=== PATIENT | male | born 1945 | race Caucasian/White ===

== ENCOUNTER → 2017-08-13 15:00 | Outpatient (CLI) | payer MEDICARE, SELFPAY ==
[2017-08-13 16:17] LABS: PSA,Total - Annual Screen 3.61 ng/mL (0.00-4.00)
== END ==
PROVIDERS: Family Provider Family Medicine; PCP Family Medicine; Visit Provider Urology
DX: Z12.5 Encounter for screening for malignant neoplasm of prostate (principal)
CPT/HCPCS: 36415; 84153; G0103

== ENCOUNTER → 2018-10-28 | Outpatient (CLI) | payer MEDICARE, SELFPAY ==
[2018-04-25 10:57] VITALS: BMI 28.7
[2018-10-28 10:15] LABS: Hematocrit 41.1 % (40-54); Hemoglobin 13.3 g/dl (13.0-16.5); Mean Corp Hgb Conc 32.4 g/gl (32-36); Mean Corpuscular Hgb 27.3 pg (27.0-32.0); Mean Corpuscular Volume 84.4 fL (80-94); Mean Platelet Vol. 9.2 fl (6.2-12.0); Platelet Count 240 K/mm3 (150-450); RBC Distribution Width SD 46.6 fl (35.1-43.9); Red Blood Count 4.87 M/mm3 (4.6-6.2); White Blood Count 8.5 K/mm3 (4.4-11.0)
[2018-10-28 10:16] LABS: Scan Indicated on CBC? Y/N NO
[2018-10-28 10:43] LABS: ALB/GLOB Ratio 0.8 RATIO (0.9-2.4); AST(SGOT) 15 U/L (15-37); Alanine Aminotransfer ALT/SGPT 21 U/L (16-61); Albumin, Serum 3.3 g/dL (3.2-5.0); Alkaline Phosphatase 93 U/L (45-117); Anion Gap 10 (5-15); BUN 18 mg/dL (7-18); BUN/Creat Ratio 12.9 RATIO (10-20); Calcium,Total 8.5 mg/dL (8.5-10.1); Chloride 109 mmol/L (98-107); Cholesterol 169 mg/dL (200); Creatinine, Serum 1.39 mg/dL (0.70-1.30); EST Glomerular Filtration Rate 53 mL/min (>60); Est Glom Filt Rate - Afr Amer 64 mL/min (>60); Globulin 3.9 g/dL (2.2-4.2); Glucose 108 mg/dL (74-106); High Density Lipoprotein 48 mg/dL; PSA,Total - Annual Screen 3.51 ng/mL (0.00-4.00); Potassium 4.2 mmol/L (3.5-5.1); Protein, Total 7.2 g/dL (6.4-8.2); Sodium Level 142 mmol/L (136-145); Triglycerides 162 mg/dL; Very Low Density Lipoprotein 32 mg/dL (5-40)
== END | disposition home or self-care (01) ==
PROVIDERS: Family Provider Family Medicine; PCP Family Medicine; Referring Provider Family Medicine; Visit Provider Family Medicine
DX: I48.91 Unspecified atrial fibrillation (principal); M13.0 Polyarthritis, unspecified; Z12.5 Encounter for screening for malignant neoplasm of prostate
CPT/HCPCS: 80053; 80061; 84153; 85027; G0103

== ENCOUNTER → 2020-04-20 09:42 | Outpatient (CLI) | payer MEDICARE, SELFPAY ==
[2020-01-20 15:38] VITALS: BMI 28.0
== END ==
PROVIDERS: PCP Family Medicine; Referring Provider Internal Medicine Gastroenterology; Visit Provider Internal Medicine Gastroenterology
DX: Z20.828 Contact with and (suspected) exposure to other viral communicable diseases (principal)
CPT/HCPCS: 87635; C9803; U0003

== ENCOUNTER → 2020-11-02 07:37 | Outpatient (CLI) | payer MEDICARE, SELFPAY ==
[2020-09-09 11:25] VITALS: BMI 28.3
[2020-11-02 09:54] LABS: Absolute Lymphocyte Count 1.98 X10^3/uL (0.83-4.51); Absolute Neutrophil Count 3.7 X10^3/uL (2.0-7.7); Basophil# 0.07 X10^3/uL; Eosinophil# 0.26 X10^3/uL; Eosinophils% 3.7 % (0-5); Hematocrit 46.2 % (40-54); Lymphocyte # 1.98 X10^3/ul (0.83-4.51); Lymphocyte % 28.1 % (19-41); Mean Corp Hgb Conc 32.5 g/dL (32-36); Mean Corpuscular Hgb 30.1 pg (27.0-32.0); Mean Corpuscular Volume 92.8 fL (80-94); Mean Platelet Vol. 9.5 fl (6.2-12.0); Monocyte# 0.98 X10^3/uL; Monocyte% 13.9 % (0-10); NRBC Flagged by Analyzer 0 % (0-5); Neutrophil # 3.72 X10^3/uL (2.7-7.7); Neutrophil % 52.7 % (47-70); Platelet Count 238 K/mm3 (150-450); RBC Distribution Width CV 13.2 % (11.6-14.6); RBC Distribution Width SD 44.9 fl (35.1-43.9); Red Blood Count 4.98 M/mm3 (4.6-6.2); White Blood Count 7.1 K/mm3 (4.4-11.0)
[2020-11-02 10:16] LABS: ALB/GLOB Ratio 0.9 RATIO (0.9-2.4); AST(SGOT) 22 U/L (15-37); Alanine Aminotransfer ALT/SGPT 31 U/L (16-61); Albumin, Serum 3.3 g/dL (3.2-5.0); Alkaline Phosphatase 96 U/L (45-117); Anion Gap 4 (5-15); BUN 19 mg/dL (7-18); BUN/Creat Ratio 15.3 RATIO (10-20); Calcium,Total 8.3 mg/dL (8.5-10.1); Chloride 112 mmol/L (98-107); Cholesterol 165 mg/dL (200); Creatinine, Serum 1.24 mg/dL (0.70-1.30); EST Glomerular Filtration Rate 60 mL/min (>60); Est Glom Filt Rate - Afr Amer 73 mL/min (>60); Globulin 3.5 g/dL (2.2-4.2); Glucose 94 mg/dL (74-106); High Density Lipoprotein 44 mg/dL; PSA,Total - Annual Screen 4.05 ng/mL (0.00-4.00); Potassium 4.1 mmol/L (3.5-5.1); Protein, Total 6.8 g/dL (6.4-8.2); Sodium Level 143 mmol/L (136-145); Triglycerides 192 mg/dL; Very Low Density Lipoprotein 38 mg/dL (5-40)
== END ==
PROVIDERS: PCP Family Medicine; Referring Provider Nurse Practitioner Family; Visit Provider Nurse Practitioner Family
DX: I48.91 Unspecified atrial fibrillation (principal); Z12.5 Encounter for screening for malignant neoplasm of prostate
CPT/HCPCS: 36415; 80053; 80061; 84153; 85025; G0103

== ENCOUNTER → 2022-03-12 | Outpatient (CLI) | payer MEDICARE, SELFPAY ==
[2022-03-12 08:40] LABS: Lyme Ab Screen Interpretation REF LAB
[2022-03-12 11:12] LABS: Hepatitis C Antibody Non-Reactive (Nonreactive); Vitamin B12 425 pg/mL (211-911)
[2022-03-12 11:32] LABS: CRP < 2.90 mg/L (0.0-3.0); Cholesterol 172 mg/dL (200); High Density Lipoprotein 50 mg/dL; PSA,Total- Diagnostic 5.14 ng/mL (0.0-4.0); Thyroid Stim Hormone (TSH) 1.52 uIU/mL (0.358-3.74); Triglycerides 105 mg/dL; Very Low Density Lipoprotein 21 mg/dL (5-40)
[2022-03-22 14:09] LABS: PROEL- A/G Ratio 1.3 (0.7-1.7); PROEL- Albumin 3.5 g/dL (2.9-4.4); PROEL- Alpha-1 Globulin 0.2 g/dL (0.0-0.4); PROEL- Alpha-2 Globulin 0.7 g/dL (0.4-1.0); PROEL- Gamma Globulin 0.8 g/dL (0.4-1.8); PROEL- Globulin, Total 2.7 g/dL (2.2-3.9); PROEL- TOTAL PROTEIN 6.2 g/dL (6.0-8.5); Testosterone, % Free 1.52 % (1.50-4.20); Testosterone, Free 9.68 ng/dL (5.00-21.00)
[2022-03-22 17:31] LABS: Lyme Scn Total Ab w/Rflx Negative (Negative); Testosterone, Total 637 ng/dL (264-916)
== END | disposition home or self-care (01) ==
LOC: MFPLAB 08:38
PROVIDERS: PCP Family Medicine; Visit Provider Family Medicine
DX: R53.83 Other fatigue (principal); R97.20 Elevated prostate specific antigen [PSA]; R79.89 Other specified abnormal findings of blood chemistry
CPT/HCPCS: 80061; 82607; 82746; 84153; 84165; 84402; 84403; 84443; 86140; 86618; 86803

== ENCOUNTER → 2022-03-16 | Outpatient (CLI) | payer MEDICARE, SELFPAY ==
--- NOTE | 2022-03-16 15:31 | CT_ITS ---
STUDY: CT RIGHTLOWER EXTREMITY WITHOUT CONTRAST REASON FOR EXAM: Male, 77 years old. PAIN. DANIELLE PROTOCOL RADIATION DOSAGE (If Supplied By Facility): CTDIvol = ( 22.33 ) mGy, DLP = ( 1657.39 ) mGycm TECHNIQUE: Thin section transaxial imaging of the ankle was obtained, with sagittal and coronal reconstructed images. Individualized dose optimization techniques were used for this CT. COMPARISON: None. Hip findings: Normal femoral head, neck, intertrochanteric region and visualized proximal femur. Normal acetabulum. Normal hip joint. Normal visualized superior and inferior pubic rami and ischial tuberosities. Mild greater trochanteric enthesopathy noted. No visualized fracture or displaced bony fragment. Mild osteoarthritic spurring is present on both sides of the hip joint. Small benign bone island noted in the right femoral neck. Normal visualized iliac wing, sacroiliac joint, and sacral ala. Diffuse rectosigmoid diverticulosis is present. The remaining visualized intrapelvic structures are unremarkable. Small fat-containing bilateral internal hernias are also present. Knee findings: There is severe narrowing at the periphery of the medial compartment with revx-wr-[id number] contact and mild reactive sclerosis. The lateral compartment spaces is preserved. The patellofemoral compartment is mildly narrowed. A small joint effusion is also present. No fracture or displaced fragment is seen. Normal proximal tibiofibular articulation. The quadriceps tendon is grossly normal. The patellar tendon is grossly normal. Normal Hoffa''s fat pad. The soft tissues are unremarkable. Ankle findings: Normal visualized distal tibia and fibula. Tiny unfused ossicle at the posterior aspect of the distal tibial plafond/posterior tibial malleolus is either related to old trauma or developmental defect with incomplete fusion. Normal tibiotalar articulation and talar dome. Normal talus, calcaneus, navicular and cuboid tarsal bones. Normal subtalar, talonavicular and calcaneocuboid articulations. Normal navicular-cuneiform, cuneiform tarsal bones and intercuneiform articulations. Normal tarsometatarsal articulations and visualized metatarsi. The soft tissue structures are grossly normal. CT/Extremity Lower without Contra IMPRESSION: 1. Severe narrowing with [id number]-iy-[id number] contact at the periphery of the medial compartment of the knee Electronically Signed: Rafael Naylor MD at 14:26 EDT ,
== END | disposition home or self-care (01) ==
PROVIDERS: PCP Family Medicine; Visit Provider Orthopaedic Surgery
DX: M17.11 Unilateral primary osteoarthritis, right knee (principal)
CPT/HCPCS: 73700

== ENCOUNTER 2022-04-02 05:23 | Day surgery (SDC) | payer MEDICARE, SELFPAY ==
[2022-03-28 07:44] LABS: Absolute Neutrophil Count 3.2 X10^3/uL (2.0-7.7); Basophil# 0.07 X10^3/uL; Eosinophil# 0.22 X10^3/uL; Eosinophils% 3.2 % (0-5); Hematocrit 44.9 % (40-54); Hemoglobin 15.1 g/dL (13.0-16.5); Mean Corp Hgb Conc 33.6 g/dL (32-36); Mean Corpuscular Hgb 31.9 pg (27.0-32.0); Mean Corpuscular Volume 94.9 fL (80-94); Mean Platelet Vol. 8.8 fl (6.2-12.0); Monocyte# 0.95 X10^3/uL; Monocyte% 13.7 % (0-10); NRBC Flagged by Analyzer 0 % (0-5); Neutrophil # 3.18 X10^3/uL (2.7-7.7); Neutrophil % 45.7 % (47-70); Platelet Count 214 K/mm3 (150-450); RBC Distribution Width CV 12.4 % (11.6-14.6); RBC Distribution Width SD 43.3 fl (35.1-43.9); Red Blood Count 4.73 M/mm3 (4.6-6.2)
[2022-03-28 08:00] LABS: Albumin, Serum 3.3 g/dL (3.2-5.0); Anion Gap 5 (5-15); BUN 22 mg/dL (7-18); Calcium,Total 8.9 mg/dL (8.5-10.1); Chloride 111 mmol/L (98-107); Creatinine, Serum 1.47 mg/dL (0.70-1.30); EST Glomerular Filtration Rate 49 mL/min (>60); Est Glom Filt Rate - Afr Amer 60 mL/min (>60); Glucose 98 mg/dL (74-106); Potassium 4.2 mmol/L (3.5-5.1); Sodium Level 143 mmol/L (136-145)
[2022-03-28 08:14] LABS: Magnesium 2.4 mg/dL (1.6-2.6)
[2022-03-28 08:54] LABS: Hemoglobin A1c 5.9 % (3.8-5.6)
[2022-04-02] VITALS (15 sets, daily range): BP systolic 104–148; BP diastolic 20–74; PULSE 51–63; RESP 16–18; TEMP 36–36.3; O2SAT 94–100; BMI 27.1
[2022-04-02] MEDS: Lactated Ringers 1,000 ML 15 ML IV ×2 (06:28→08:31)
[2022-04-02] MEDS: Magnesium 1 GM over 15 mins IV (06:28)
[2022-04-02] MEDS: Gabapentin 600 MG Tablet PO (06:28)
[2022-04-02] MEDS: Acetaminophen 500 MG Tablet 1000 MG PO ×2 (06:28→14:08)
[2022-04-02 07:25] LABS: Bedside Glucose 91 mg/dL (74-106)
--- NOTE | 2022-04-02 07:30 | KNEE_PTH ---
PATIENT: JARRED WHITT LOC: [facility] [place] U#:[id number] AGE/SX: 77/M ROOM: RE04/02/[address]: Dr. Handy Cerna DO : 1945 BED: DIS: 04/02/2022 SPEC #: [id number] RECD: 04/02/22 12:29 STATUS: AYANNA REQ #: [id number] TIKA: 04/02/22 07:[address]: Handy Cerna DEPT: SURGICAL PATHOLOGY RECD BY: Mary Ann Panchal ENTERED: 04/02/22 12:44 SP TYPE: TOTAL KNEE OTHR DR: Dr. Marquise Whitt MD Tissues: Knee, NOS Procedures: Decalcification bone/plaque Surgery Specimen Level IV HEADER OPERATION: ERAS, total knee replacement robotic arm assist PRE-OP DIAGNOSIS: Unilateral primary osteoarthritis right knee TISSUE SUBMITTED: Bone and tissue right knee MICROSCOPIC DIAGNOSIS Bone and tissue of right knee, total knee resection: Severe degenerative joint disease. AM:ida 04/05/2022 MICROSCOPIC DESCRIPTION Slides are reviewed. GROSS DESCRIPTION Received is one container designated bone and soft tissue right knee. The specimen consists of multiple fragments of zaidi-yellow bone measuring in aggregate 17 x 13 x 2 cm. Also in the specimen container are multiple fragments of yellow-white soft tissue measuring in aggregate 10 x 9 x 2.5 cm. A number of bony fragments contain articular surfaces consistent with tibial plateau and femoral condyle and displaying prominent osteophyte formation, eburnation, and bone erosion. Manager Quantitative sections are submitted in two cassettes as follows: 1 - soft tissue, 2 - bone after decalcification. / AM:ida 04/02/2022 TC:5 [facility]: [id number], [id number]
[2022-04-02] MEDS: Cefazolin 2 GM in 0.9% Normal Saline 100 ML IV (07:32)
[2022-04-02] MEDS: TXA 1000mg in NS100 100ml (IVPB at Incision) 660 MG IV (07:45)
[2022-04-02] MEDS: TXA 1000mg in NS100 100ml (IVPB at Closure) 660 MG IV (08:33)
--- NOTE | 2022-04-02 08:49 | OP.PCM_ITS ---
Report of Operation Date of Procedure: 04/02/22 Pre-Operative Diagnosis: OA right knee Post-Operative Diagnosis: same Surgery/Procedure Performed:: Right TKR Description of Surgical Findings:: Report of Operation Date of Procedure: 04/02/2022 Preoperative Diagnosis: [right ] knee primary osteoarthritis Postoperative Diagnosis: [ right ] knee primary osteoarthritis Operation: Robotic Assisted Knee Total Arthroplasty, [right ] knee Surgeon: Dr Handy Cerna DO Windows Systems Engineer: Chidi Lopez PA-C Anesthesia: spinal Anesthesiologist: Umang Siegel M.D. Findings: Stable knee with good patella tracking Specimen(s): Bony cuts Complications: No intraoperative complications Estimated Blood Loss: 20 cc IV Fluids: 1000 cc crystalloid Implants Used: 1. [employer] press-fit CR size 6 femur 2. [place] [employer] size 6 tibia 3. 38 mm patella 4. 9 mm CS polyethylene Brief History Operative Indications: [ (77 y/o male) ] with history of [right] knee osteoarthrosis with radiographic findings with loss of joint space, osteophyte formation and subchondral sclerosis. Failed conservative measures as mentioned in the H&P. Discussion of total knee arthroplasty as well as risk and benefits were d iscussed with the patient including but not limited to blood loss, DVTs, PEs, neurovascular damage, general risk of anesthesia including loss of life, and stiffness or instability were also discussed with the patient. Patient demonstrated understanding and was able to sign informed consent. Procedure: On the date of procedure, patient's [ right ] lower extremity was marked in the preoperative area. The patient was then taken back to the operating room where that patient was placed on the table in the supine position. All bony prominences were identified and well-padded. Anesthesia assumed control of the C-spine and airway throughout the remainder of the procedure. A tourniquet was placed on the [ right ] upper thigh and the leg was prepped in a sterile fashion. The surgeon then scrubbed at this time. Upon reentering the room, the [right] lower extremity was draped in a standard orthopedic fashion. A timeout was then called and everyone agreed upon the side, the site, the procedure to be performed, patient's identity and antibiotics given. Esmarch bandage was used to exsanguinate the extremity and the tourniquet was placed up to 250 mmHg with the knee in flexion. A midline skin incision was made and a sharp dissection was taken down through skin, subcutaneous tissue and fat. The standard medial parapatellar incision was made and the patella was subluxed laterally. An appropriate deep MCL release was done and the fat pad was resected. Our attention was then directed to the patella. The patella was everted and a flat resection was made. The knee was then flexed up and 2 femoral pins were placed inside the incision and 2 tibial pins were placed outside the incision in the medial tibia bicortically. Once this was completed, the 2 checkpoints in the femur and tibia were placed. Knee was then flexed up and the bony landmarks were registered. Once the was completed, the knee taken through range of motion and manually stressed allowing us to plan for an appropriate tibial cut. The robotic arm was brought into the field sterilely and checkpoint and saw were registered. Based on the patient's deformity, the tibial cut was made in [1 degree varus ]. At this time, the tensioner was then placed in the joint and ligament tension was checked at 90 degrees and full extension. Based on the patient's ligamentous tension, appropriate adjustments were made to the operative plan and ligament releases were done. Once we were happy with our operative plan with balanced flexion and extension gaps, our attention was directed to the femur. The robot was brought into the field sterilely and registered. Posterior condylar cuts, anterior chamfer cuts and anterior cuts were appropriately made for a [size 6 ] femur. When these were completed, the saws were switched out in the distal femoral and posterior chamfer cuts were made. Protecting the soft tissue throughout this time. A [size 6] base plate was selected. The knee was flexed to 90 degrees and soft tissues and posterior osteophytes were removed from the joint. 40 cc of the periarticular injection was injected into the posterior medial corner of the joint. The appropriate trials were then placed on the femur and tibia. A trial polyethylene was trialed to ensure proper balancing and stability of the knee. The appropriate tibial internal rotation was then marked with a bovie. Our attention was then directed to the patella. The lug holes were drilled and the patella trial was placed. Patellar tracking was checked and deemed appropriate. Once we were happy, lug holes were drilled for the femur and trial components were removed. The tibia was subluxed and pinned into place and the keel was punched and drilled appropriately. Final components were verified and opened. The wound was copiously irrigated with normal saline. The components were impacted into place with the tibia, femur and finally the patella. The trial poly component was placed and the knee was placed in full extension. The tracking, alignment and balance were verified and a [ 9 mm CS ] polyethylene component was placed. Once the final components were placed an Irrisept lavage was performed and the wound was copiously irrigated with normal saline solution and the periarticular injection was given. the wound was closed in a layer-gay fashion using #1 vicryl interrupted sutures for the arthrotomy, 2-0 interrupted vicryl suture for the subcuticular layer and destinee for final skin closure. A sterile compressive dressing was then placed. The patient was then awakened from anesthesia, transferred to the [facility] and transferred to the PACU for recovery. My physician preschool teacher assistant was a vital part of this case. He was important in appropriate retraction during the case, and protection of soft tissues during bony cuts. His intimate knowledge of the case and my steps aided in safe and expedient completion of the procedure as well as appropriate position of the leg during the case. He was also vital in assisting with closure under my direct supervision. Due to the complexity of this case, robotic arm was used to assist in the surgery to improve accuracy and clinical outcomes. Post-op Plan: DVT ppx; ASA 81 mg BID, thigh high compression stockings Follow up: in office in 2 weeks for wound check PT: to start POD #0 at hospital, outpatient PT should be arranged. Preoperative antibiotic: Ancef 2 grams IV Handy Cerna DO Surgeon: Handy Cerna television director: Chidi Lopez Type of Anesthesia: Spinal Anesthesiologist: Umang Siegel Specimen's removed: bone Estimated Blood Loss (mL): 20 cc Fluids Replaced: 1000 cc crystalloid Admit VTE Documentation VTE Present on Admission: No VTE Mechan Device Prophylaxis: SCD's and Knee High ANGIE Hose VTE Pharm Prophylaxis ordered?: Yes
--- NOTE | 2022-04-02 10:05 | RAD_ITS ---
STUDY: X-RAY - RIGHT KNEE REASON FOR EXAM: Male, 77 years old. Post op TKR -- in PACU TECHNIQUE: 2 view(s) of the knee. COMPARISON: None. FINDINGS: Normal visualized distal femur. Normal visualized proximal tibia and fibula. Normal proximal tibiofibular articulation. The patient is status post total knee replacement. There is good alignment. Postoperative soft tissue changes. RAD/Knee 1 or 2 Views IMPRESSION: Status post right total knee replacement. There is good alignment. Postoperative soft tissue changes. Electronically Signed: Helio Joshi MD at 12:30 EDT ,
[2022-04-02] MEDS: Lactated Ringers 1,000 ML 125 ML IV (10:20)
[2022-04-02] MEDS: oxyCODONE 5 MG Tablet PO ×2 (12:09→14:08)
== END 2022-04-02 16:40 | disposition home or self-care (01) ==
LOC: SDC 05:24 → AC 05:24
PROVIDERS: Anesthesiology; PCP Family Medicine; Referring Provider Orthopaedic Surgery; Visit Provider Orthopaedic Surgery
PROC: 0SRC0JZ Replacement of Right Knee Joint with Synthetic Substitute, Open Approach (ICD-10-PCS; CPT 27447; principal; 2022-04-02 07:00)
DX: M17.11 Unilateral primary osteoarthritis, right knee (principal); I48.0 Paroxysmal atrial fibrillation; K21.9 Gastro-esophageal reflux disease without esophagitis; G47.30 Sleep apnea, unspecified; Z79.01 Long term (current) use of anticoagulants; Z79.899 Other long term (current) drug therapy; Z96.612 Presence of left artificial shoulder joint
CPT/HCPCS: 27447; 64447; 01402; 36415; 73560; 80048; 82040; 82962; 83036; 83735; 85025; 87081; 88305; 88311; 97162; C1776; J7120; J3475

== ENCOUNTER → 2023-03-12 | Outpatient (CLI) | payer MEDICARE, SELFPAY ==
[2023-03-12 10:08] LABS: Absolute Lymphocyte Count 1.69 X10^3/uL (0.83-4.51); Basophil# 0.07 X10^3/uL; Basophil% 1.2 % (0-1); Eosinophil# 0.26 X10^3/uL; Eosinophils% 4.5 % (0-5); Hemoglobin 13.3 g/dL (13.0-16.5); Lymphocyte # 1.69 X10^3/ul (0.83-4.51); Lymphocyte % 29.3 % (19-41); Mean Corp Hgb Conc 31.7 g/dL (32-36); Mean Corpuscular Hgb 28.4 pg (27.0-32.0); Mean Corpuscular Volume 89.7 fL (80-94); Mean Platelet Vol. 9.5 fl (6.2-12.0); Monocyte# 0.75 X10^3/uL; NRBC Flagged by Analyzer 0 % (0-5); Neutrophil # 2.98 X10^3/uL (2.7-7.7); Neutrophil % 51.7 % (47-70); Platelet Count 236 K/mm3 (150-450); RBC Distribution Width CV 15.7 % (11.6-14.6); RBC Distribution Width SD 51.8 fl (35.1-43.9); Red Blood Count 4.68 M/mm3 (4.6-6.2); White Blood Count 5.8 K/mm3 (4.4-11.0)
[2023-03-12 10:46] LABS: ALB/GLOB Ratio 0.8 RATIO (0.9-2.4); AST(SGOT) 17 U/L (15-37); Alanine Aminotransfer ALT/SGPT 24 U/L (16-61); Albumin, Serum 3.2 g/dL (3.2-5.0); Alkaline Phosphatase 100 U/L (45-117); Anion Gap 4 (5-15); BUN 16 mg/dL (7-18); BUN/Creat Ratio 11.9 RATIO (10-20); Calcium,Total 8.8 mg/dL (8.5-10.1); Chloride 111 mmol/L (98-107); Cholesterol 165 mg/dL (200); Creatinine, Serum 1.34 mg/dL (0.70-1.30); EST Glomerular Filtration Rate 55 mL/min (>60); Est Glom Filt Rate - Afr Amer 66 mL/min (>60); Globulin 3.8 g/dL (2.2-4.2); Glucose 96 mg/dL (74-106); High Density Lipoprotein 45 mg/dL; PSA,Total- Diagnostic 3.09 ng/mL (0.0-4.0); Potassium 4.4 mmol/L (3.5-5.1); Sodium Level 140 mmol/L (136-145); Triglycerides 160 mg/dL; Very Low Density Lipoprotein 32 mg/dL (5-40)
== END | disposition home or self-care (01) ==
LOC: MFPLAB 08:15
PROVIDERS: PCP Family Medicine; Visit Provider Family Medicine
DX: I48.91 Unspecified atrial fibrillation (principal); R97.20 Elevated prostate specific antigen [PSA]; Z13.6 Encounter for screening for cardiovascular disorders
CPT/HCPCS: 36415; 80053; 80061; 84153; 85025

== ENCOUNTER → 2024-03-13 | Outpatient (CLI) | payer MEDICARE, SELFPAY ==
[2024-03-13 17:50] LABS: Absolute Lymphocyte Count 2.04 X10^3/uL (0.83-4.51); Absolute Neutrophil Count 4.8 X10^3/uL (2.0-7.7); Basophil# 0.05 X10^3/uL; Basophil% 0.6 % (0-1); Eosinophil# 0.12 X10^3/uL; Eosinophils% 1.5 % (0-5); Hematocrit 41.3 % (40-54); Hemoglobin 13.2 g/dL (13.0-16.5); Lymphocyte # 2.04 X10^3/ul (0.83-4.51); Lymphocyte % 25.8 % (19-41); Mean Corpuscular Hgb 28.4 pg (27.0-32.0); Mean Corpuscular Volume 88.8 fL (80-94); Mean Platelet Vol. 9.3 fl (6.2-12.0); Monocyte# 0.93 X10^3/uL; Monocyte% 11.7 % (0-10); NRBC Flagged by Analyzer 0 % (0-5); Neutrophil # 4.75 X10^3/uL (2.7-7.7); Platelet Count 262 K/mm3 (150-450); RBC Distribution Width CV 15.2 % (11.6-14.6); RBC Distribution Width SD 49.4 fl (35.1-43.9); Red Blood Count 4.65 M/mm3 (4.6-6.2); White Blood Count 7.9 K/mm3 (4.4-11.0)
[2024-03-13 18:03] LABS: ALB/GLOB Ratio 0.8 RATIO (0.9-2.4); AST(SGOT) 19 U/L (15-37); Alanine Aminotransfer ALT/SGPT 21 U/L (16-61); Albumin, Serum 3.3 g/dL (3.2-5.0); Alkaline Phosphatase 94 U/L (45-117); Anion Gap 4 (5-15); BUN 19 mg/dL (7-18); BUN/Creat Ratio 12.4 RATIO (10-20); Calcium,Total 9.3 mg/dL (8.5-10.1); Chloride 108 mmol/L (98-107); Creatinine, Serum 1.53 mg/dL (0.70-1.30); EST Glomerular Filtration Rate 47 mL/min (>60); Est Glom Filt Rate - Afr Amer 57 mL/min (>60); Glucose 99 mg/dL (74-106); PSA,Total- Diagnostic 2.89 ng/mL (0.0-4.0); Potassium 4.2 mmol/L (3.5-5.1); Protein, Total 7.3 g/dL (6.4-8.2); Sodium Level 136 mmol/L (136-145)
== END | disposition home or self-care (01) ==
LOC: MTLAB 15:55
PROVIDERS: PCP Family Medicine; Referring Provider Family Medicine; Visit Provider Family Medicine
DX: N18.2 Chronic kidney disease, stage 2 (mild) (principal); R97.20 Elevated prostate specific antigen [PSA]
CPT/HCPCS: 36415; 80053; 84153; 85025

== ENCOUNTER 2025-02-16 10:00 | Outpatient (RCR) | payer MEDICARE, SELFPAY ==
--- NOTE | 2025-01-11 16:01 | HP.PTEVAL_ITS ---
Patient's Visit Information Visit Information Visit Information: JARRED TORRES is a 79 year old M referred to Physical Therapy by ANA Machuca with a diagnosis of CERVICALGIA ,KYPHOSIS ,CERVICAL SPINE. Date of Evaluation: 01/11/25 Physical Therapist: Josiah Hernandez PT, Cert MDT, OCS Visit Plan Frequency: 2x /Week Duration: 4 Weeks Plan: PT INTERVENTIONS CERVICAL ROM ,POSTURAL EX'S , STRENGTHENING ,MANUAL THERAPY ( STM) AND MODALTIES Subjective Subjective: This 79 y/o male presents to physical therapy with cervical pain. Patient has had cervical pain for several months . Patient seen Jonah Chicas recommended PT , Patient had x-rays showed Diffuse facet arthritis. Multilevel anterior osteophyte formation. Relatively preserved disc spaces. No abnormal motion with flexion/extension. Medication methocarbamol 500 mg 3 times a day as needed. Did recommended pain management. Patient wanted to wait on pain management. Location of pain symmetrical cervical to UT. Symptoms described described as pressure and tightness. Aggravating factors standing ,walking ,lifting OH ,rotation. Alleviating factors rest. ,medication; Denies paresthesia/tingling -. Denies SALGADO/nausea/tinnitus .No h/o trauma/injury . No prior treatment. Patient pain affects sleeping. Patient condition affects QOL and function/ADL's. Goals to decrease pain. SOCIAL: VOCATION: retired Pain Bilateral Neck: Pain Intensity (Out of 10): 1 Pain Intensity Range: 1 and 10 Objective Objective: POSTURE: mild forward posture ,thoracic kyphosis ,head forward GAIT: reciprocal pattern slow corinne PALPATION: UT/levator ,paraspinals BUE: WFL CERVICAL ROM: flexion min loss ,lateral flexion mod/severe loss ,rotation mod loss ,extension mod/severe loss with crepitus noted with motion MMT: BUE 4/5 grossly Special Tests C/S Radiculapathy - Left Upper limb tension test: Negative C/S Radiculapathy - Right Upper limb tension test: Negative C/S Radiculapathy - Left Spurlings: Positive C/S Radiculapathy - Right Spurlings: Positive C/S Radiculapathy - Left Cervical distraction: Positive C/S Radiculapathy - Right Cervical distraction: Positive C/S Radiculapathy - Left Relief test: Negative C/S Radiculapathy - Right Relief test: Negative Sharp Colby: Negative Vertebral Artery Test: Negative Alar Ligament Test: Negative Balance/Special Test Scores Oswestry Neck Score: 19 Goals Goal 1:: Patient to be I with HEP for neck Goal Time Frame: 4-6 Weeks Goal 2:: Patient to improve cervical ROM for function of recovery for driving Goal Time Frame: 4-6 Weeks Goal 3:: Patient to demonstrate 50% improvement with less pain and improved function Goal Time Frame: 4-6 Weeks Goal 4:: Patient to improve neck oswestry score by 5 points to improve function and QOL Goal Time Frame: 4-6 Weeks Goal 5:: Patient able to stand and/or walk 40-50% improved for ADLS Goal Time Frame: 4-6 Weeks Rehabilitation Potential Physical Therapy Diagnosis: This patient has cervical pain with DDD with decrease cervical ROM ,decrease posture pain with position/motion testing ,worse with walking/standing thus benefit from skilled PT Rehabilitation Potential: Good Anticipated Interventions Patient/Client Instruction: Educate patient on: Condition and Plan of Care For the Purpose of:: To decrease pain, To increase ROM, To improve muscle performance and motor function, To improve ability to perform ADL's, To increase tolerance to activity/condition/position, To improve performance and independence with ADL's, To improve ability of physical actions for home/community/work/leisure, To improve gait and locomotor functions, To improve health of tissue, To decrease soft tissue restriction, To increase flexibility/ROM and To improve tolerance to ADL's Therapeutic Exercise to Include: Strength training, Postural training, Flexibilty training and Active ROM For the Purpose of:: To decrease pain, To increase ROM, To improve muscle performance and motor function, To improve ability to perform ADL's, To increase tolerance to activity/condition/position, To improve ability of physical actions for home/community/work/leisure, To improve health of tissue, To decrease soft tissue restriction and To increase flexibility/ROM Manual Therapy Techniques to Include: Mobilization and Soft tissue mobilization For the Purpose of:: To decrease pain, To increase ROM, To improve nutrient d elivery to tissue, To increase oxygenation perfusion, To improve health of tissue, To decrease soft tissue restriction and To increase flexibility/ROM TENS: Yes IF ES: Yes Cryotherapy (ice pack, ice massage): Yes Thermo therapy (hot pack): Yes Ultrasound (thermal/non thermal): Yes For the Purpose of:: To decrease pain, To increase ROM, To improve nutrient delivery to tissue, To increase oxygenation perfusion, To improve health of tissue and To decrease soft tissue restriction Text: Thank you for the opportunity to evaluate your patient. For Medicare and Medicare HMO plans, please review the plan of care and approve it. It will need to be FAXED BACK to us at [phone] for Medicare purposes. For Medicare only, by signing this I certify the plan of care. Please let me know if there are questions or concerns regarding this plan of care. Physician Signature: Date:
--- NOTE | 2025-02-16 10:36 | HP.PTDCSUM ---
Discharge Summary D/C summary: It has been my pleasure to treat JARRED TORRES referred by ANA Machuca, with the diagnosis of CERVICALGIA ,KYPHOSIS ,CERVICAL SPINE for a total of 8 visit(s). Discharge Date: 02/16/25 Please see the following information for a summary of their discharge status. Subjective Subjective: Patient making progressing with less pain Lifting OH Turning makes symptoms worse Possible management Pain Bilateral Neck: Pain Intensity (Out of 10): 2 Overall Improvement % Improvement: 60 Objective Objective/Function: POSTURE: mild forward posture ,thoracic kyphosis ,head forward GAIT: reciprocal pattern slow corinne PALPATION: UT/levator ,paraspinals BUE: WFL CERVICAL ROM: flexion min loss ,lateral flexion mod/severe loss ,rotation mod loss ,extension mod/severe loss with crepitus noted with motion MMT: BUE 4/5 grossly Goals Goal 1:: Patient to be I with HEP for neck Goal Progress: Progressing Goal 2:: Patient to improve cervical ROM for function of recovery for driving Goal Progress: Progressing Goal 3:: Patient to demonstrate 50% improvement with less pain and improved function Goal Progress: Goal Met Goal 4:: Patient to improve neck oswestry score by 5 points to improve function and QOL Goal Progress: Progressing Goal 5:: Patient able to stand and/or walk 40-50% improved for ADLS Goal Progress: Progressing Plan Plan: D/C D/C Information Discharge Comments: hep and possible pain management d/c sentence: If there are questions or concerns regarding this patient's physical therapy, please feel free to call me at [phone]. Thank you for the referral of this patient. Sincerely, Josiah Hernandez, PT, Cert MDT, OCS Balance/Gait/Functional tests Balance/Special Test Scores Oswestry Neck Score: 19 Improvement % Improvement: 60
== END 2025-02-16 19:00 | disposition home or self-care (01) ==
LOC: PT 10:00
PROVIDERS: PCP Family Medicine; Referring Provider Student in an Organized Health Care Education/Training Program; Visit Provider Student in an Organized Health Care Education/Training Program
DX: M40.202 Unspecified kyphosis, cervical region (principal); M54.2 Cervicalgia
CPT/HCPCS: 97110; 97140; 97162; 97530

== ENCOUNTER 2025-05-06 15:13 | Emergency (ER) | payer OTHER, SELFPAY ==
[2025-05-06 15:14] VITALS: BP 111/79; PULSE 54; RESP 16; TEMP 36.4; O2SAT 100; BMI 27.7
--- NOTE | 2025-05-06 15:41 | EX.ED.DYSGE1 ---
HPI History of Present Illness Chief Complaint: Bite Informant: patient Narrative Narrative: Patient is a 80-year-old male anticoagulated on Xarelto lives alone and receives frequent tick bites presenting with tick bite with associated rash. Patient's daughter took a tick off of him earlier today. He was noticed to have a relatively large rash around it. He states that areas been itching. I spoke to another family member recommended they come to the emergency room. He states he is otherwise been doing well. Did have a recent bad cold/cough however this has been improving. No recent fevers. No myalgias reported. No chest pain or lightheadedness reported. No other complaints or concerns at this time. No known history of Lyme disease. [facility] Medical History Wears glasses Alcohol use Arthritis DVT (deep venous thrombosis) Migraine headache Gastric reflux Non-smoker CPAP (continuous positive airway pressure) dependence History of pain when walking History of echocardiogram History of stress test Cardiology follow-up encounter History of atrial fibrillation Chest pain Syncope Sleep apnea GERD (gastroesophageal reflux disease) History of DVT of lower extremity Atrial flutter Paroxysmal atrial fibrillation Pulmonary embolism Home Medications ?Medication ?Instructions ?Recorded ?Last Taken ?Type omeprazole 20 mg capsule,delayed 20 mg PO DAILY 03/24/13 03/13/16 05:30 History release magnesium oxide 400 mg (241.3 mg 400 mg PO DAILY 12/21/14 12/21/14 09:00 History magnesium) tablet ascorbic acid (vitamin C) 500 mg 500 mg PO DAILY 07/24/21 Unknown History tablet cholecalciferol (vitamin D3) 25 25 mcg PO DAILY 07/24/21 Unknown History mcg (1,000 unit) tablet zinc gluconate 100 mg tablet 100 mg PO DAILY 07/24/21 Unknown History acetaminophen 500 mg tablet 1,000 mg PO Q8 PRN 01/02/24 Unknown History flecainide 100 mg tablet See Rx Instructions .Route 12/16/24 Unknown Rx .COMPLEX #180 tabs metoprolol tartrate 25 mg tablet See Rx Instructions .Route 12/21/24 Unknown Rx .COMPLEX #90 tabs rivaroxaban 20 mg tablet (Xarelto) 20 mg PO DAILY #90 tabs 12/21/24 Unknown Rx methocarbamol 500 mg tablet 500 mg PO TID PRN pain/spasms #60 01/12/25 Unknown Rx tabs doxycycline hyclate 100 mg capsule 100 mg PO BID #20 caps 05/06/25 Unknown Rx Allergy/AdvReac Type Severity Reaction Status Date / Time No Known Allergies Allergy Verified 05/06/25 15:15 Family History Mother CVA (cerebral vascular accident) Hypertension Father CVA (cerebral vascular accident) Diabetes Surgical History History of esophagogastroduodenoscopy (EGD) Hx of colonoscopy History of colon surgery Hx of inguinal hernia surgery History of arthroplasty of left shoulder History of cholecystectomy Social History Smoking Status: Never smoker alcohol intake: current details: rare substance use type: does not use ROS ROS ED Constitutional Constitutional ED: Denies chills or fever(s) ENT ENT ED: Reports other Details: No mouth sores ; Denies sore throat Cardiovascular Cardiovascular: Denies chest pain Respiratory/Chest Respiratory/Chest: Denies cough Gastrointestinal Gastrointestinal: Denies nausea or vomiting Musculoskeletal Musculoskeletal: Denies arthralgias or myalgias Integumentary Reports rash Neurologic Neurologic: Denies weakness Hematologic/Lymphatic Hematologic/Lymphatic: Reports easy bleeding, easy bruising and other Details: On Xarelto EXAM Physical Exam Const Vital Signs: 05/06/25 15:14 Temperature 97.6 F L Temperature Source Temporal Pulse Rate 54 L Respiratory Rate 16 Blood Pressure 111/79 Blood Pressure Mean 89 Pulse Ox 100 Oxygen Delivery Method Room Air Positive well nourished and well developed General Appearance ED: well developed HEENT Reports moist mucous membranes Neck supple Chest Wall inspection of chest normal and palpation of chest normal Resp normal respiratory effort and clear to auscultation bilaterally Cardio regular rate and regular rhythm GI normal to inspection, nondistended, normoactive bowel sounds and non-tender Extremity normal to inspection General Extremety ED: Negative for edema General Extremity: Negative for edema Neuro oriented x3 Sensorium / Orientation: alert Skin Skin Narrative: On the left flank at approximately the mid axillary line there is a small wound consistent with recent tick bite. Traveling anterior from this is approximately 7 cm x 4 cm avoid welts that is slightly raised and erythematous with central erythema that is less pronounced and not raised. Patient states this area is mildly itchy. No associate lymphangitic streaking. No fluctuance appreciated. No petechia present. No other rash appreciated MDM MDM MDM Narrative Medical decision making narrative: Patient is evaluated for rash associate with tick bite. There does not appear to be any retained of pieces of the tick. Rash is not consistent with cellulitis. Differential includes localized skin reaction/allergic reaction versus erythema multiforme a rash secondary to Lyme disease. Will empirically put on doxycycline as the rash does have central clearing and patient does have frequent tick bites as he lives in the [facility]. Lyme titer sent. Counseled to use topical hydrocortisone cream to help with itching and take Zyrtec in case this is more allergy mediated. Given return precautions. Discharged home in stable condition. Discharge Plan Triage Chief Complaint: Bite ED Provider: Nisreen Sanchez Dx/Rx/DC Orders Clinical Impression: Tick bite, Rash, Risk of exposure to Lyme disease Instructions: ED Tick Bite, Antibiotic Treatment Prescriptions: New doxycycline hyclate 100 mg capsule 100 mg PO BID Qty: 20 0RF No Action zinc gluconate 100 mg tablet 100 mg PO DAILY cholecalciferol (vitamin D3) 25 mcg (1,000 unit) tablet 25 mcg PO DAILY ascorbic acid (vitamin C) 500 mg tablet 500 mg PO DAILY acetaminophen 500 mg tablet 1,000 mg PO Q8 PRN omeprazole 20 MG capsule 20 mg PO DAILY Patient Comments: reflux magnesium oxide 400 MG tablet 400 mg PO DAILY Patient Comments: supplement flecainide 100 mg tablet See Rx Instructions .ROUTE .COMPLEX Qty: 180 3RF Dose Instruction: TAKE 1 TABLET TWICE DAILY Rx Instructions: TAKE 1 TABLET TWICE DAILY metoprolol tartrate 25 mg tablet See Rx Instructions .ROUTE .COMPLEX Qty: 90 3RF Dose Instruction: TAKE 1/2 TABLET BY MOUTH TWICE DAILY (DOSE INCREASE) Rx Instructions: TAKE 1/2 TABLET BY MOUTH once DAILY (DOSE INCREASE) Xarelto 20 mg tablet 20 mg PO DAILY Qty: 90 3RF methocarbamol 500 mg tablet 500 mg PO TID PRN (Reason: pain/spasms) Qty: 60 0RF Primary Care Provider: Marquise Whitt Referrals: Marquise Whitt MD [Primary Care Provider, Family Practice] Activity Restrictions/Additional Instructions: I recommend taking daily Zyrtec and using topical hydrocortisone ointment to help with the itching to the area of rash. You were started on treatment for Lyme disease. If your titer comes back negative (you should be able to check through the patient portal or call back next week to check on your result) you may stop the antibiotics. You develop any worsening symptoms or further concerns please do not hesitate to return the emergency room Print Language: Bulgarian Disposition Disposition: Home, Self Care
--- OUTSIDE RECORDS SUMMARY | 2025-05-06 15:51 | XMS RPT_ITS | CCD ---
Author Organization [facility] Team Providers Care Grader Operator Name Role Phone GARDNER, MARNI Unavailable Unavailable SELF, SELF Unavailable Unavailable WHITT, KIMBERLY A Unavailable Unavailable GARDNER, MARNI Unavailable Unavailable GARDNER, MARNI Unavailable Unavailable WHITT, KIMBERLY A Unavailable Unavailable Pcp, No Unavailable Unavailable Kimberly Whitt Primary Care Provider [phone] Kimberly Whitt Primary Care Provider [phone] Kimberly Whitt Referring Provider [phone] Alexander PEREZ, PA Debra Segal Attending Provider Unavailable Primary Care Provider Unavailabl e PROVIDER, UNKNOWN Admitting Unavailable PROVIDER, UNKNOWN Attending Unavailable RUSH CRAVEN Referring UnavailDr. Kimberly Rios MD Primary Care Provider Dr. Kimberly Whitt MD Referring Provider [phone] Dipti Moncada Attending Provider Dr. Zacarias Nichols MD Attending Provider Dr. Kimberly Whitt MD Primary Care Physician Dipti Moncada Attending Physician Dr. Zacarias Nichols MD Attending Physician Dipti Moncada Referring Provider Whitt, Kimberly Referring Unavailable Dipti Chicas Attending Unavailable Whitt, Kimberly Primary Care Unavailable Whitt, Kimberly Primary Care Unavailable Whitt, Kimberly Attending Unavailable Whitt, Kimberly Referring Unavailable Whitt, Kimberly Primary Care Unavailable Dipti Chicas Attending Unavailable Dipti Chicas Referring Unavailable Whitt, Kimberly Referring Unavailable Handy Kaufman Attending Unavailable Whitt, Kimberly Primary Care Unavailable Whitt, Kimberly Primary Care Unavailable Zacarias Nichols Attending Unavailable Medications Current Medications Medication Drug Class(es) Dates Sig (Normalized) Sig (Original) acetaminophen 500 mg oral tablet (7 sources) Start: 04-02-2022 End: 01-02-2024 take 2 tablets by mouth every eight hours as needed Start: 04-02-2022 take 1000 mg by mout h every eight hours Acetaminophen Active 1000 MG PO EVERY 8 HOURS 42 7 April 02, 2022 12:00am ascorbic acid 500 mg oral tablet (4 sources) Vitamin C Start: 07-24-2021 take 1 tablet by mouth once daily cholecalciferol 0.025 mg oral tablet (4 sources) Vitamin D Start: 07-24-2021 take 1 tablet by mouth once daily magnesium oxide 400 mg oral tablet (4 sources) Start: 12-21-2014 take 1 tablet by mouth once daily methocarbamol 500 mg oral tablet (3 sources) Muscle Relaxant Start: 01-07-2025 End: 01-12-2025 take 1 tablet by mouth three times daily as needed for pain metoprolol tartrate 25 mg oral tablet (20 sources) beta-Adrenergic Caroline Start: 08-04-2024 End: 12-21-2024 take 0.5 tablet by mouth once daily Start: 06-11-2023 End: 08-04-2024 take 0.5 tablet by mouth twice daily Metoprolol Tartrate 25 mg tablet Discontinued 0 .ROUTE .COMPLEX 90 June 11, 2023 9:01am August 04, 2024 12:09pm TAKE 1/2 TABLET BY MOUTH TWICE DAILY (DOSE INCREASE) Start: 11-06-2017 End: 06-11-2023 Metoprolol Tartrate 25 mg ta blet Discontinued 12.5 mg PO TWICE A DAY 180 May 22, 2022 1:36pm June 11, 2023 9:01am Start: 11-06-2017 End: 04-05-2021 take 12.5 mg by mouth twice daily Metoprolol Tartrate Active 12.5 MG PO TWICE A DAY April 05, 2021 4:18pm Start: 10-21-2017 End: 11-06-2017 take 1 tablet by mouth twice daily Metoprolol Tartrate 25 mg tablet Discontinued 25 mg PO TWICE A DAY 180 3 November 06, 2017 3:13pm November 06, 2017 5:41pm Start: 12-24-2014 End: 10-21-2017 Metoprolol Tartrate 25 MG ta blet Discontinued 12.5 mg PO TWICE A DAY 90 0 December 24, 2014 12:00October 21, 2017 10:01am Start: 12-24-2014 End: 10-21-2017 take 12.5 mg by mouth twice daily Metoprolol Tartrate Discontinued 12.5 MG PO TWICE A DAY 90 December 24, 2014 12:00am October 21, 2017 10:01am metoprolol tartr ate, short acting, (LOPRESSOR) 50 mg tablet Take 100 mg by mouth twice daily. 0 Active Comment on above: Take 100 mg by mouth twice daily. omeprazole 20 mg delayed release oral capsule (5 sources) Proton Pump Inhibitor Start: 03-24-2013 take 1 capsule by mouth once daily Comment on above: Take 20 mg by mouth once daily. zinc gluconate 100 mg oral tablet (4 sources) Start: 07-24-2021 take 1 tablet by mouth once daily Completed/Discontinued Medications Medication Drug Class(es) Dates Sig (Normalized) Sig (Original) acetaminophen 325 mg / oxyCODONE hydrochloride 5 mg oral tablet (5 sources) Opioid Agonist Start: 03-14-2016 End: 10-16-2017 take 1 tablet by mouth every four hours as needed Oxycodone-Acetamino phen Discontinued 1 - 2 TABLET PO EVERY 4 HOURS NEEDED March 14, 2016 12:00October 16, 2017 4:09pm Start: 05-26-2013 End: 10-16-2017 Oxycodone-Acetaminophen 1 TA BLET tablet Discontinued 1 - 2 {tbl} PO EVERY 4 HOURS NEEDED as needed for Pain March 14, 2016 12:00October 16, 2017 4:09pm Comment on above: Take 1-2 tablets by mouth every 4 hours as needed. aspirin 81 mg chewable tablet (4 sources) Platelet Aggregation Inhibitor, Nonsteroidal Anti-inflammatory Drug Start: 5 End: 5 take 1 tablet by mouth once daily Aspirin 81 MG Tab.Chew Discontinued 81 mg PO DAILY December 21, 2014 12:00am December 24, 2014 3:19pm calcium carbonate 500 mg chewable tablet (1 source) Start: 3 take 500 mg by mouth every twelve hours as needed calcium carbonate 500 mg chew Take 1 tablet by mouth twice daily as needed (Dyspepsia). 0 05/26/2013 Active Comment on above: [facility] needed (Dys[facility]psia). cephalexin 500 mg oral capsule (4 sources) Cephalosporin Antibacterial Start: 6 End: 8 take 1 capsule by mouth every twelve hours Cephalexin 500 MG capsule Discontinued 500 mg PO EVERY 12 HOURS 10 0 March 14, 2016 12:00am October 16, 2017 4:09pm digoxin 0.05 mg/ml oral solution (5 sources) Cardiac Glycoside Start: 3 End: 3 Digoxin 0.125 MG/2.5 ML Ml Discontinued 0.25 mg PO March 24, 2013 12:00am March 24, 2013 3:43pm take 1 tablet by mouth once yola y digoxin (LANOXIN) 250 mcg tablet Take 250 mcg by mouth once daily. 0 Active Comment on above: Take 250 mcg by mout h once daily. docusate sodium 100 mg oral capsule (5 sources) Start: 6 End: 8 take 1 capsule by mouth twice daily as needed for constipation Docusate Sodium 100 MG capsule Discontinued 100 mg PO TWICE DAILY NEEDED as needed for Constipation 10 March 14, 2016 12:00am October 16, 2017 4:09pm Start: 05-26-2013 End: 07-03-2013 take 1 capsule by mouth twice daily docusate sodium 100 mg capsule Take 1 capsule by mouth twice daily. 100 capsule 0 05/26/2013 07/03/2013 Discontinued Comment on above: Take 1 capsule by mo [facility] twice daily. finasteride 5 mg oral tablet (3 sources) 5-alpha Reductase Inhibitor Start: 024 End: Finasteride 5 mg tablet Discontinued mg PO January 02, 2024 12:00am August 04, 2024 11:55am flecainide acetate 100 mg oral tablet (20 sources) Antiarrhythmic Start: 015 End: 025 Flecainide 100 mg tablet Discontinued 0 .ROUTE .COMPLEX 180 June 02, 2023 11:28am December 16, 2024 8:51am TAKE 1 TABLET TWICE DAILY Mqucccuyrnta-Ovsd-Rqld c Acid (1 source) Start: 016 End: 018 Pugrugwvhzcq-Zorh-Jie ic Acid Discontinued 1 EACH PO DAILY March 14, 2016 12:00am October 16, 2017 4:09pm Qstzlskylfqc-Ocfx-Lgwz c Acid 1 EACH tablet (3 sources) Start: End: Auahhefnkdwh-Egtq-Gfh ic Acid 1 EACH tablet Discontinued 1 NMA PO DAILY 30 0 March 14, 2016 12:00am October 16, 2017 4:09pm ondansetron 4 mg disintegrating oral tablet (1 source) Serotonin-3 Receptor Antagonist Start: take 1 tablet by mouth every eight hours as needed ondansetron orally disintegrating (ZOFRAN ODT) 4 mg disintegrating tablet Take 1 tablet by mouth every 8 hours as needed. 20 tablet 0 05/26/2013 Active Comment on above: Take 1 tablet by efrain th every 8 hours as needed. oxyCODONE hydrochloride 5 mg oral tablet (4 sources) Opioid Agonist Start: End: take 5-10 mg by mouth every four hours as needed for pain Oxycodone 5 mg Tablet Discontinued 5 - 10 mg PO EVERY 4 HOURS NEEDED as needed for Pain Score 4-10 60 7 0 April 02, 2022 July 02, 2023 2:16pm Status post total right knee replacement not using cement Presence of right artificial knee joint promethazine hydrochloride 25 mg oral tablet (4 sources) Phenothiazine Start: End: take 1 tablet by mouth every four hours as needed for nausea Promethazine 25 MG tablet Discontinued 25 mg PO EVERY 4 HOURS NEEDED as needed for Nausea 10 0 March 14, 2016 12:00am October 16, 2017 4:09pm rivaroxaban 20 mg oral tablet (20 sources) Factor Xa Inhibitor Start: End: take 1 tablet by mouth once daily Rivaroxaban (Xarelto) 20 mg tablet Discontinued 20 mg PO DAILY 90 3 April 19, 2023 11:36am December 21, 2024 12:05pm SUMAtriptan 50 mg oral tablet (9 sources) Serotonin-1b and Serotonin-1d Receptor Agonist Start: End: take 1 tablet by mouth once daily as needed Sumatriptan Succinate (Imitrex) 50 mg tablet Discontinued 50 mg PO daily as needed for MIGRAINES October 16, 2017 12:00am January 02, 2024 2:07pm SUMATRIPTAN SUCC INATE (IMITREX ORAL) Take 50 g by mouth as needed. 0 Active Comment on above: Take 50 g by mouth a s needed. tamsulosin hydrochloride 0.4 mg oral capsule (7 sources) alpha-Adrenergic Caroline Start: 4 End: 5 take 1 capsule by mouth once daily Tamsulosin 0.4 mg capsule Discontinued 0.4 mg PO daily January 02, 2024 12:00am August 04, 2024 11:55am Start: 10-16-2017 End: 07-24-2021 take 1 capsule by mouth once daily Tamsulosin 0.4 mg capsule,extended release 24hr Discontinued 0.4 mg PO daily October 16, 2017 12:00am July 24, 2021 12:11pm Problems Active Problems Problem Classification Problem Date Documented Da te Episodic/Chronic Cardiac dysrhythmias (10 sources) Atrial flutter; Translations: [Unspecified atrial flutter] Onset: 5 Chronic Chronic kidney disease (1 source) Chronic kidney disease, stage 2 (mild); Translations: [Chronic kidney disease, stage 2 (mild)] Onset: 4 Chronic Esophageal disorders (4 sources) Gastroesophageal reflux disease; Translations: [Gastro-esophageal reflux disease without esophagitis] 10-16-2017 Chronic Nonspecific chest pain (4 sources) Chest pain; Translations: [Chest pain, unspecified] 01-17-2022 Episodic Osteoarthritis (3 sources) Arthritis; Translations: [Unspecified osteoarthritis, unspecified site] Onset: 4 10-25-2023 Chronic Other acquired deformities (2 sources) Cervical kyphosis; Translations: [Unspecified kyphosis, cervical region] Chronic Other acquired deformities (1 source) Unspecified kyphosis, cervical region; Translations: [Unspecified kyphosis, cervical region] Onset: 5 Chronic Other aftercare (3 sources) Drug therapy finding; 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] 07-02-2023 Episodic Other connective tissue disease (4 sources) History of total knee arthroplasty; Translations: [Presence of right artificial knee joint] 04-02-2022 Chronic Pancreatic disorders (not diabetes) (4 sources) Gallstone pancreatitis; Translations: [Biliary acute pancreatitis without necrosis or infection] 03-24-2013 Episodic Phlebitis; thrombophlebitis and thromboembolism (4 sources) H/O: Deep vein thrombosis; Translations: [Personal history of other venous thrombosis and embolism] 10-16-2017 Episodic Pulmonary heart disease (4 sources) Pulmonary embolism; Translations: [Other pulmonary embolism without acute cor pulmonale] 01-20-2020 Episodic Residual codes; unclassified (4 sources) Sleep apnea; Translations: [Sleep apnea, unspecified] 10-16-2017 Chronic Spondylosis; intervertebral disc disorders; other back problems (5 sources) Neck pain; Translations: [Cervicalgia] Onset: 5 Episodic Syncope (4 sources) Syncope; Translations: [Syncope and collapse] 10-29-2018 Episodic Unclassified (1 source) Pain in left shoulder / M25.512(ICD-10) Onset: 8 Unclassified (1 source) Condition Update / 178() Onset: 8 Unclassified (1 source) Kyphosis of cervical region Unclassified (3 sources) M40.202 - Unspecified kyphosis, cervical region,M54.2 - Cervicalgia Past or Other Problems Problem Classification Problem Date Documented Date Episodic/Chronic Biliary tract disease (1 source) Biliary calculus; Translations: [Calculus of gallbladder without cholecystitis without obstruction] Onset: 04-29-2013 04-29-2013 Episodic Unclassified (1 source) Pain in left shoulder; Translations: [Pain in left shoulder] Onset: 11-06-2017 Unclassified (1 source) Condition Update; Translations: [Condition Update] Onset: 11-06-2017 Results Test Name Value Interpretation Reference Range Facility PT D/C Summary (1)on 025 PT D/C Summary (1) [facility] Physical Therapy [address] [place] [address] / REHABILITATION SERVICES DISCHARGE SUMMARY MR#: [id number] Acct: [id number] Name: MITCH WHITT Rep #: [id number] : 1945 80 From: Makenzie Montes PT. MD Oliva, OCS Referring DrGrecia: ANA Machuca Status: REG RCR Insurance: [employer] MEDICARE PPO SELF PAY INSURANCE Discharge Summary D/C summary: It has been my pleasure to treat MITCH WHITT referred by ANA Machuca, with the diagnosis of CERVICALGIA ,KYPHOSIS ,CERVICAL SPINE for a total of 8 visit(s). Discharge Date: 02/16/25 Please see the following information for a summary of their discharge status. Subjective Subjective: Patient making progressing with less pain Lifting [place] Turning makes symptoms worse Possible management Pain Bilateral Neck: Pain Intensity (Out of 10): 2 Overall Improvement % Improvement: 60 Objective Objective/Function: POSTURE: mild forward posture ,thoracic kyphosis ,head forward GAIT: reciprocal pattern slow corinne PALPATION: UT/levator ,paraspinals BUE: WFL CERVICAL ROM: flexion min loss ,lateral flexion mod/severe loss ,rotation mod loss ,extension mod/severe loss with crepitus noted with motion MMT: BUE 4/5 grossly Goals Goal 1:: Patient to be I with HEP for neck Goal Progress: Progressing Goal 2:: Patient to improve cervical ROM for function of recovery for driving Goal Progress: Progressing Goal 3:: Patient to demonstrate 50% improvement with less pain and improved function Goal Progress: Goal Met Goal 4:: Patient to improve neck oswestry score by 5 points to improve function and QOL Goal Progress: Progressing Goal 5:: Patient able to stand and/or walk 40-50% improved for ADLS Goal Progress: Progressing Plan Plan: D/C D/C Information Discharge Comments: hep and possible pain management d/c sentence: If there are questions or concerns regarding this patient's physical therapy, please feel free to call me at [phone]. Thank you for the referral of this patient. Sincerely, Josiah Hernandez, PT, Cert MDT, OCS Balance/Gait/Functional tests Balance/Special Test Scores Oswestry Neck Score: 19 Improvement % Improvement: 60 02/17/25 1103 CC: ANA Machuca; Dr. Kimberly Whitt MD JLA Signed Normal [facility] Inital Evaluation (1) - PTon 01-11-2025 Inital Evaluation (1) - PT [facility] Therapy [facility] [address] [place] [address] / REHABILITATION SERVICES INITIAL EVALUATION MR#: [id number] Acct: [id number] Name: MITCH WHITT Rep #: [id number] : 1945 79 From: Josiah Hernandez PT, Cert. MD Oliva, OCS Referring Dr.: ANA Machuca Status: REG RCR Insurance: [employer] MEDICARE PPO SELF PAY INSURANCE Patient's Visit Information Visit Information Visit Information: MITCH WHITT is a 79 year old M referred to Physical Therapy by ANA Machuca with a diagnosis of CERVICALGIA ,KYPHOSIS ,CERVICAL SPINE. Date of Evaluation: 01/11/25 Physical Therapist: Josiah Hernandez PT, Cert ZARI, OCS Visit Plan Frequency: 2x /Week Duration: 4 Weeks Plan: PT INTERVENTIONS CERVICAL ROM ,POSTURAL EX'S , STRENGTHENING ,MANUAL THERAPY ( STM) AND MODALTIES Subjective Subjective: This 79 y/o male presents to physical therapy with cervical pain. Patient has had cervical pain for several months . Patient seen Jonah Chicas recommended PT , Patient had x-rays showed Di ffuse facet arthritis. Multilevel anterior osteophyte formation. Relatively preserved disc spaces. No abnormal motion with flexion/extension. Medication methocarbamol 500 mg 3 times a day as needed. Did recommended pain management. Patient wanted to wait on pain management. Location of pain symmetrical cervical to UT. Symptoms described described as pressure and tightness. Aggravating factors standing ,walking ,lifting [place] ,rotation. Alleviating factors rest. ,medication; Denies paresthesia/tingling -. Denies SALGADO/nausea/tinnitus .No h/o trauma/injury . No prior treatment. Patient pain affects sleeping. Patient condition affects QOL and function/ADL's. Goals to decrease pain. SOCIAL: VOCATION: retired Pain Bilateral Neck: Pain Intensity (Out of 10): 1 Pain Intensity Range: 1 and 10 Objective Objective: POSTURE: mild forward posture ,thoracic kyphosis ,head forward GAIT: reciprocal pattern slow corinne PALPATION: UT/levator ,paraspinals BUE: WFL CERVICAL ROM: flexion min loss ,lateral flexion mod/severe loss ,rotation mod loss ,extension mod/severe loss with crepitus noted with motion MMT: BUE 4/5 grossly Special Tests C/S Radiculapathy - Left Upper limb tension test: Negative C/S Radiculapathy - Right Upper limb tension test: Negative C/S Radiculapathy - Left Spurlings: Positive C/S Radiculapathy - Right Spurlings: Positive C/S Radiculapathy - Left Cervical distraction: Positive C/S Radiculapathy - Right Cervical distraction: Positive C/S Radiculapathy - Left Relief test: Negative C/S Radiculapathy - Right Relief test: Negative Sharp Colby: Negative Vertebral Artery Test: Negative Alar Ligament Test: Negative Balance/Special Test Scores Oswestry Neck Score: 19 Goals Goal 1:: Patient to be I with HEP for neck Goal Time Frame: 4-6 Weeks Goal 2:: Patient to improve cervical ROM for function of recovery for driving Goal Time Frame: 4-6 Weeks Goal 3:: Patient to demonstrate 50% improvement with less pain and improved function Goal Time Frame: 4-6 Weeks Goal 4:: Patient to improve neck oswestry score by 5 points to improve function and QOL Goal Time Frame: 4-6 Weeks Goal 5:: Patient able to stand and/or walk 40-50% improved for ADLS Goal Time Frame: 4-6 Weeks Rehabilitation Potential Physical Therapy Diagnosis: This patient has cervical pain with DDD with decrease cervical ROM ,decrease posture pain with position/motion testing ,worse with walking/standing thus benefit from skilled PT Rehabilitation Potential: Good Anticipated Interventions Patient/Client Instruction: Educate patient on: Condition and Plan of Care For the Purpose of:: To decrease pain, To increase ROM, To improve muscle performance and motor function, To improve ability to perform ADL's, To increase tolerance to activity/condition/position , To improve performance and independence with ADL's, To improve ability of physical actions for home/community/work/leisure , To improve gait and locomotor functions, To improve health of tissue, To decrease soft tissue restriction, To increase flexibility/ROM and To improve tolerance to ADL's Therapeutic Exercise to Include: Strength training, Postural training, Flexibilty training and Active ROM For the Purpose of:: To decrease pain, To increase ROM, To improve muscle performance and motor function, To improve ability to perform ADL's, To increase tolerance to activity/condition/position , To improve ability of physical actions for home/community/work/leisure , To improve health of tissue, To decrease soft tissue restriction and To increase flexibility/ROM Manual Therapy Techniques to Include: Mobilization and Soft tissue mobilization For the Purpose of:: To decrease pain, To increase ROM, To improve nutrient delivery to tissue, To increase oxyge (more content not included)... Normal [facility] Cerv Spine 2 or 3 Viewson Cerv Spine 2 or 3 Views [facility] [address] [place] [address] Cerv Spine 2 or 3 Views MR#: [id number] Acct: [id number] Name: MITCH WHITT Rep #: [id number] : 1945 M 79 From: Pedro Garrison MD PCP: Dr. Kimberly Whitt MD Status: DEP AMB Study: Cerv Spine 2 or 3 Views Date of Exam: 01/07/25 Exam# [id number] Ordering Dr: Dipti Chicas PROCEDURE: CERV SPINE 2 OR 3 VIEWS 01/07/2025 REASON FOR EXAM: BACK PAIN TECHNIQUE: CERV SPINE 2 OR 3 VIEWS COMPARISON: No FINDINGS: Diffuse facet arthritis. Multilevel anterior osteophyte formation. Relatively preserved disc spaces. No abnormal motion with flexion/extension. No interspinous widening. No acute bone or soft tissue pathology. RAD/Cerv Spine 2 or 3 Views IMPRESSION: Diffuse cervical spine degeneration mainly facet arthritis. Disclaimer: Reading Location: [place] [address] CC: ANA Machuca; Dr. Kimberly Whitt MD School Laboratory Technician: Signed Normal [facility] Orthopedic Visit Reporton Orthopedic Visit Report [facility] [facility] [address] [place] [address] OFFICE VISIT Date of Service: 01/07/25 MR#: [id number] Acct: [id number] Name: MITCH WHITT Rep #: [id number] : 1945 Provider: ANA Machuca Age/Sex: 79/M Location: [facility] [place] Status: Signed Intake Vital Signs 08/04/24 10:54 01/07/25 13:53 Height 5 ft 10 in 5 ft 10 in Weight: 201 lb 193 lb 2 oz BMI 28.8 27.7 BP 135/85 H Blood Pressure Location Lt brachial Position Sitting Respiration 18 Pulse 58 L Pulse Source Monitor Pulse Oximetry (%) 96 Oxygen Delivery Method room air Intake Visit Reasons: CERVICAL SPINE Chief Complaint: Cervicla spine pain Accompanied by: Self Is patient in pain?: No Allergies No Known Allergies Allergy (Verified 01/07/25 13:59) Medications ???Medication ???Instructions ???Recorded ???Confirmed ???Type omeprazole 20 mg capsule,delayed 20 mg PO DAILY 03/24/13 01/07/25 H istory release magnesium oxide 400 mg (241.3 mg 400 mg PO DAILY 12/21/14 01/07/25 History magnesium) tablet ascorbic acid (vitamin C) 500 mg 500 mg PO DAILY 07/24/21 01/07/25 History tablet cholecalciferol (vitamin D3) 25 25 mcg PO DAILY 07/24/21 01/07/25 History mcg (1,000 unit) tablet zinc gluconate 100 mg tablet 100 mg PO DAILY 07/24/21 01/07/25 History acetaminophen 500 mg tablet 1,000 mg PO Q8 PRN 01/02/24 History flecainide 100 mg tablet See Rx Instructions .Route 5 01/07/25 Rx .COMPLEX #180 tabs metoprolol tartrate 25 mg tablet See Rx Instructions .Route 5 01/07/25 Rx .COMPLEX #90 tabs rivaroxaban 20 mg tablet (Xarelto) 20 mg PO DAILY #90 tabs 12/21/24 01/07/25 Rx methocarbamol 500 mg tablet 500 mg PO TID PRN pain/spasms #60 01/07/25 01/07/25 Rx tabs Have you fallen in the past year?: No PFSH Medical History Wears glasses Alcohol use Arthritis DVT (deep venous thrombosis) Migraine headache Gastric reflux Non-smoker CPAP (continuous positive airway pressure) dependence History of pain when walking History of echocardiogram History of stress test Cardiology follow-up encounter History of atrial fibrillation Chest pain Syncope Sleep apnea GERD (gastroesophageal reflux disease) History of DVT of lower extremity Atrial flutter Paroxysmal atrial fibrillation Pulmonary embolism Surgical History History of esophagogastroduodenoscopy (EGD) Hx of colonoscopy History of colon surgery Hx of inguinal hernia surgery History of arthroplasty of left shoulder History of cholecystectomy Family History Mother CVA (cerebral vascular accident) Hypertension Father CVA (cerebral vascular accident) Diabetes Social History Smoking Status: Never smoker alcohol intake: current details: rare substance use type: does not use HPI CERVICAL SPINE Details: This documentation accurately reflects the service provided and the decisions made by , ANA Machuca 01/07/25 0766. Part of today???s visit was documented by Corina Rushing MA, acting as scribe. MITCH WHITT is a 79 year old M here today for cervical spine. Patient is having pain in the back of the neck. The pain goes in the neck and then goes down into the left shoulder and the right shoulder. He hasn't had any pain going done the arms, or numbness or tingling in the fingers. Patient does feel and hear a crunching noise when he turns his head to the left and to the right. He doesn't have any pain with the crunching, it mainly just scares him. This has been going on for the last 2 months. Patient doesn't recall any recent injuries. He states that the pain gets worse when he walks for a long period of time, or long distances. The pain acts up when he is standing for a long period of time. Patient hasn't had any cervical spine surgeries, or injuries. Walking long distance, or for a long period of time makes the pain worse. Standing for a long period of time makes the pain worse. Says that the pain gets better when he is sitting. Patient has never had any injections in his neck, he hasn't done any Physical therapy for this. Patient hasn't been diagnosed with diabetes. Hx of A fib takes Xarelto. Patient has never smoked, and has never done any drugs. Patient states that his balance has not been good. He thinks it's from his left shoulder surgery. 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 He states that his left shoulder sits further back then his right shoulder. Patient hasn't used a walker or a cane to help him. He (more content not included)... Normal [facility] 12 Lead EKG performed by [facility] [place] on 08-04-2024 12 Lead EKG performed by [facility] [address] [place] [address] 12 Lead EKG performed by [facility] [place] 08/04/24827 MR#: [id number] Acct: [id number] Name: WHITTMITCH ROSIE Rep #: [id number] : 1945 79 From: Handy Kaufman MD Attending Dr: Dr. Handy Kaufman MD Status: DE P AMB Ordering Dr: Handy Kaufman MD Date: 08/04/24 Location: [facility] [place] Sex: M C Admitted: BMS/12 Lead EKG performed by [facility] [place] ECG Report Interpretation S inus Bradycardia -First degree A-V block Gage = 250-LAFB - Nonspecific T-abnormality. ABNORMAL Electronically signed on 08/04/2024 at 11:[address] Handy Kaufman [employer] Version [id number] 08/04/24 1127 Date Handy Kaufman MD CC: Dr. Kimberly Whitt MD Date Dictated: 08/04/24827 Date Transcribed: 08/04/24827 School Laboratory Technician: Signed Normal [facility] Cardiology Visit Reporton Cardiology Visit Report [facility] [address] [place] [address] OFFICE VISIT Date of Service: 08/04/24 MR#: [id number] Acct: [id number] Name: MITCH WHITT Rep #: [id number] : 1945 Provider: Dr. Handy tang MD Age/Sex: 79/M Location: [facility] [place] Status: Signed HPI HPI History of Present Illness Details: Patient 79-year-old white male that comes today for monitoring of his cardiovascular status. The patient gives a history of paroxysmal atrial fibrillation he is really not certain when he is in atrial fibs. He has a history of this starting when he had a DVT and pulmonary embolus in 2012. After he been on rate modulating drugs for period of time he stopped them and when he was exercising he had a syncopal spell. He has had no other recurrence of any type of syncope. Over the last 6 months he reports he is doing very well in his home environment he is aerobically active but not his activities he says he knows he should be. [facility]. He is on flecainide 100 mg twice daily and metoprolol tartrate 12.5 mg twice daily. The patient is really only complaint is he feels fatigue during the day. His heart rate on his EKG done in office today shows sinus bradycardia with a first-degree AV block and a left axis deviation consistent with left anterior fascicular block. His T waves are very flat but in the V4 V5 and V6 his QT interval measures at 440 ms. Patient reports that he is doing very well in his home environment overall. The patient denies any nuisance bleeding. [facility] for [facility] of his oral anticoagulation therapy. Intake Vital Signs 01/02/24 13:44 08/04/24 10:54 Height 5 ft 10 in 5 ft 10 in Weight: 197 lb 201 lb BMI 28.3 28.8 BP 95/56 L 135/85 H Blood Pressure Location Lt brachial Lt brachial Position Sitting Sitting Respiration 16 18 Pulse 58 L 58 L Pulse Source NIBP Monitor Pulse Oximetry (%) 96 Oxygen Delivery Method room air Intake Visit Reasons: 6 M FU Framer Required: No Accompanied by: Self Is patient in pain?: No Allergies No Known Allergies Allergy (Verified 08/04/24 10:54) Medications ???Medication ???Instructions ???Recorded ???Confirmed ???Type omeprazole 20 mg capsule,delayed 20 mg PO DAILY 03/24/13 08/04/24 H istory release magnesium oxide 400 mg (241.3 mg 400 mg PO DAILY 12/21/14 08/04/24 History magnesium) tablet ascorbic acid (vitamin C) 500 mg 500 mg PO DAILY 07/24/21 08/04/24 History tablet cholecalciferol (vitamin D3) 25 25 mcg PO DAILY 07/24/21 08/04/24 History mcg (1,000 unit) tablet zinc gluconate 100 mg tablet 100 mg PO DAILY 07/24/21 08/04/24 History rivaroxaban 20 mg tablet (Xarelto) 20 mg PO DAILY #90 tabs 04/19/23 08/04/24 Rx flecainide 100 mg tablet See Rx Instructions .Route 3 08/04/24 Rx .COMPLEX #180 tabs acetaminophen 500 mg tablet 1,000 mg PO Q8 PRN 01/02/24 History metoprolol tartrate 25 mg tablet See Rx Instructions .Route 5 08/04/24 Rx .COMPLEX #90 tabs Have you fallen in the past year?: No PFSH Medical History Wears glasses Alcohol use Arthritis DVT (deep venous thrombosis) Migraine headache Gastric reflux Non-smoker CPAP (continuous positive airway pressure) dependence History of pain when walking History of echocardiogram History of stress test Cardiology follow-up encounter History of atrial fibrillation Chest pain Syncope Sleep apnea GERD (gastroesophageal reflux disease) History of DVT of lower extremity Atrial flutter Paroxysmal atrial fibrillation Pulmonary embolism Surgical History History of esophagogastroduodenoscopy (EGD) Hx of colonoscopy History of colon surgery Hx of inguinal hernia surgery History of arthroplasty of left shoulder History of cholecystectomy Family History Mother CVA (cerebral vascular accident) Hypertension Father CVA (cerebral vascular accident) Diabetes Social History Smoking Status: Never smoker alcohol intake: current details: rare substance use type: does not use ROS Const Const: Negative for fatigue or weakness ENT ENT: Negative for dizziness or balance problems Cardio Chest Pain: No Palpitations: No Edema: None Muscle aches with walking: None Resp Respiratory: Negative for SOB with activity, SOB at rest or SOB orthopnea SOB lying down GI GI: Negative nausea, vomiting or heartburn Musc Musc: Negative for muscle weakness or carolyn (more content not included)... Normal [facility] CBC W/Diff, Automatedon 10-0 Absolute Lymph 2.04 X10 3/uL Normal 0.83-4.51 [facility] Comment on above: Performed By: #### L 100.0100, L500.4050, L501.9940 #### [facility] [address] [place], [address] Absolute Neut 4.8 X10 3/uL Normal 2.0-7.7 [facility] Comment on above: Performed By: #### L 100.0100, L500.4050, L501.9940 #### [facility] [address] [place], [address] Basophils/100 WBC (Bld) 0.6 % Normal 0-1 [facility] Comment on above: Performed By: #### L 100.0100, L500.4050, L501.9940 #### [facility] [address] [place], [address] Eosinophils/100 WBC (Bld) 1.5 % Normal 0-5 [facility] Comment on above: Performed By: #### L 100.0100, L500.4050, L501.9940 #### [facility] [address] [place], [address] Erythrocyte distribution width (RBC) [Ratio] 15.2 % High 11.6-14.6 [facility] Comment on above: Performed By: #### L 100.0100, L500.4050, L501.9940 #### [facility] [address] [place], [address] Hematocrit (Bld) [Volume fraction] 41.3 % Normal 40-54 [facility] Comment on above: Performed By: #### L 100.0100, L500.4050, L501.9940 #### [facility] [address] [place], [address] Hemoglobin (Bld) [Mass/Vol] 13.2 g/dL Normal 13.0-16.5 [facility] Comment on above: Performed By: #### L 100.0100, L500.4050, L501.9940 #### [facility] [address] [place], [address] IG% 0.400 Normal 0.0-0.9 [facility] Comment on above: Result Comment: IG% - Immature Granulocytes (promyelocytes, myelocytes and metamyelocytes) > 1% indicates that a LEFT SHIFT is Present. Performed By: #### L 100.0100, L500.4050, L501.9940 #### [facility] [address] [place], [address] Lymphocytes/100 WBC (Bld) 25.8 % Normal 19-41 [facility] Comment on above: Performed By: #### L 100.0100, L500.4050, L501.9940 #### [facility] [address] [place], [address] MCH (RBC) [Entitic mass] 28.4 pg Normal 27.0-32.0 [facility] Comment on above: Performed By: #### L 100.0100, L500.4050, L501.9940 #### [facility] [address] [place], [address] MCHC (RBC) [Mass/Vol] 32.0 g/dL Normal 32-36 [facility] Comment on above: Performed By: #### L 100.0100, L500.4050, L501.9940 #### [facility] [address] [place], [address] MCV (RBC) [Entitic vol] 88.8 fL Normal 80-94 [facility] Comment on above: Performed By: #### L 100.0100, L500.4050, L501.9940 #### [facility] [address] [place], [address] Monocytes/100 WBC (Bld) 11.7 % High 0-10 [facility] Comment on above: Performed By: #### L 100.0100, L500.4050, L501.9940 #### [facility] [address] [place], [address] Neutrophils/100 WBC (Bld) 60.0 % Normal 47-70 [facility] Comment on above: Performed By: #### L 100.0100, L500.4050, L501.9940 #### [facility] [address] [place], [address] Nucleated RBC (Bld) [#/Vol] 0 10*3/uL Normal 0-5 [facility] Comment on above: Performed By: #### L 100.0100, L500.4050, L501.9940 #### [facility] [address] [place], [address] Platelet mean volume (Bld) [Entitic vol] 9.3 fL Normal 6.2-12.0 [facility] Comment on above: Performed By: #### L 100.0100, L500.4050, L501.9940 #### [facility] [address] [place], [address] Platelets (Bld) [#/Vol] 262 10*3/uL Normal 150-450 [facility] Comment on above: Performed By: #### L 100.0100, L500.4050, L501.9940 #### [facility] [address] [place], [address] RBC (Bld) [#/Vol] 4.65 10*6/uL Normal 4.6-6.2 [facility] Comment on above: Performed By: #### L 100.0100, L500.4050, L501.9940 #### [facility] [address] [place], [address] RDW SD 49.4 fl High 35.1-43.9 [facility] Comment on above: Performed By: #### L 100.0100, L500.4050, L501.9940 #### [facility] [address] [place], [address] WBC (Bld) [#/Vol] 7.9 10*3/uL Normal 4.4-11.0 [facility] Comment on above: Performed By: #### L 100.0100, L500.4050, L501.9940 #### [facility] [address] [place], [address] Comprehensive Metabolic [facility] 03-13-2024 Albumin [Mass/Vol] 3.3 g/dL Normal 3.2-5.0 [facility] Comment on above: Performed By: #### L 100.0100, L500.4050, L501.9940 #### [facility] [address] [place], [address] Albumin/Globulin [Mass ratio] 0.8 {ratio} Low 0.9-2.4 [facility] Comment on above: Performed By: #### L 100.0100, L500.4050, L501.9940 #### [facility] [address] [place], [address] ALK P 94 U/L Normal 45-117 [facility] Comment on above: Performed By: #### L 100.0100, L500.4050, L501.9940 #### [facility] [address] [place], [address] ALT [Catalytic activity/Vol] 21 U/L Normal 16-61 [facility] Comment on above: Performed By: #### L 100.0100, L500.4050, L501.9940 #### [facility] [address] [place], [address] AST [Catalytic activity/Vol] 19 U/L Normal 15-37 [facility] Comment on above: Performed By: #### L 100.0100, L500.4050, L501.9940 #### [facility] [address] [place], [address] Bilirubin [Mass/Vol] 0.50 mg/dL Normal 0.20-1.00 [facility] Comment on above: Result Comment: For patients on eltrombopag therapy, use of Dimension Evans TBIL is not recommended. Performed By: #### L 100.0100, L500.4050, L501.9940 #### [facility] [address] [place], [address] BUN/CRE 12.4 RATIO Normal 10-20 [facility] Comment on above: Performed By: #### L 100.0100, L500.4050, L501.9940 #### [facility] [address] [place], [address] CA,Total 9.3 mg/dL Normal 8.5-10.1 [facility] Comment on above: Performed By: #### L 100.0100, L500.4050, L501.9940 #### [facility] [address] [place], [address] Chloride [Moles/Vol] 108 mmol/L High 98-107 [facility] Comment on above: Performed By: #### L 100.0100, L500.4050, L501.9940 #### [facility] [address] [place], [address] CO2 [Moles/Vol] 24.0 mmol/L Normal 21.0-32.0 [facility] Comment on above: Performed By: #### L 100.0100, L500.4050, L501.9940 #### [facility] [address] [place], [address] Creatinine [Mass/Vol] 1.53 mg/dL High 0.70-1.30 [facility] Comment on above: Result Comment: The validity of the calculated GFR GFRAA in patients over 70 years has not been determined. Clinical correlation is essential. Performed By: #### L 100.0100, L500.4050, L501.9940 #### [facility] [address] [place], [address] EST GFR - AA 57 mL/min Low >60 [facility] Comment on above: Result Comment: Afri can Indonesian GFR Calc Performed By: #### L 100.0100, L500.4050, L501.9940 #### [facility] [address] [place], [address] GAP 4 Low 5-15 [facility] Comment on above: Performed By: #### L 100.0100, L500.4050, L501.9940 #### [facility] [address] [place], [address] GFR/1.73 sq M.predicted among non-blacks MDRD (S/P/Bld) [Vol rate/Area] 47 mL/min/{1.73_m2} Low >60 [facility] Comment on above: Result Comment: Non- GFR Calc Performed By: #### L 100.0100, L500.4050, L501.9940 #### [facility] [address] [place], [address] Globulin (S) [Mass/Vol] 4.0 g/dL Normal 2.2-4.2 [facility] Comment on above: Performed By: #### L 100.0100, L500.4050, L501.9940 #### [facility] [address] [place], [address] Glucose [Mass/Vol] 99 mg/dL Normal 74-106 [facility] Comment on above: Performed By: #### L 100.0100, L500.4050, L501.9940 #### [facility] [address] [place], [address] Potassium [Moles/Vol] 4.2 mmol/L Normal 3.5-5.1 [facility] Comment on above: Performed By: #### L 100.0100, L500.4050, L501.9940 #### [facility] [address] [place], [address] Sodium [Moles/Vol] 136 mmol/L Normal 136-145 [facility] Comment on above: Performed By: #### L 100.0100, L500.4050, L501.9940 #### [facility] [address] [place], [address] T PROT 7.3 g/dL Normal 6.4-8.2 [facility] Comment on above: Performed By: #### L 100.0100, L500.4050, L501.9940 #### [facility] [address] [place], [address] Urea nitrogen [Mass/Vol] 19 mg/dL High 7-18 [facility] Comment on above: Performed By: #### L 100.0100, L500.4050, L501.9940 #### [facility] [address] [place], [address] PSA,Total- Diagnosticon 10-0 PSA, DIAGNOSTIC 2.89 ng/mL Normal 0.0-4.0 [facility] Comment on above: Result Comment: This test was performed using the TPSA assay method for the [employer] system. Values obtained with different assay methods cannot be used interchangably. When changing PSA assays in the course of monitoring a patient, additional sequential testing should be carried out to confirm baseline values. Performed By: #### L 100.0100, L500.4050, L501.9940 #### [facility] [address] [place], [address] XR HAND LEFT 3 VIEWSon 10-25 XR HAND LEFT 3 VIEWS EXAMINATION: XR HAND LEFT 3 VIEWSPRO/LT/FY 10/25/2023 11:19 AM CLINICAL HISTORY: ARTHRITIS ASSOCIATED DIAGNOSIS: Arthritis ORDERING PROVIDER: RUSH CRAVEN TECHNKAY NOTE: COMPARISON: None IMPRESSION: There are moderate osteoarthritic changes, most pronounced at the first carpometacarpal and third distal interphalangeal joints punctate soft tissue calcifications are seen surrounding the third proximal interphalangeal joint, possibly dystrophic in nature. There are no distinct osseous erosions or periosteal reaction No right hand fracture or dislocation is identified. Left hand MACRO: None Normal The [email or web address] XR Hand - left 3 Viewson EXAMINATION: XR HAND LEFT 3 VIEWSPRO/LT/FY 10/25/2023 11:19 AM CLINICAL HISTORY: ARTHRITIS ASSOCIATED DIAGNOSIS: Arthritis ORDERING PROVIDER: RUSH CRAVEN TECHNKAY NOTE: COMPARISON: None IMPRESSION: There are moderate osteoarthritic changes, most pronounced at the first carpometacarpal and third distal interphalangeal joints punctate soft tissue calcifications are seen surrounding the third proximal interphalangeal joint, possibly dystrophic in nature. There are no distinct osseous erosions or periosteal reaction No right hand fracture or dislocation is identified. Left hand MACRO: None RADIOLOGY Pavel Carlos MD - 10/26/2023 EXAMINATION: XR HAND LEFT 3 VIEWSPRO/LT/FY 10/25/2023 11:19 AM CLINICAL HISTORY: ARTHRITIS ASSOCIATED DIAGNOSIS: Arthritis ORDERING PROVIDER: RUSH CRAVEN TECHNKAY NOTE: COMPARISON: None IMPRESSION: There are moderate osteoarthritic changes, most pronounced at the first carpometacarpal and third distal interphalangeal joints punctate soft tissue calcifications are seen surrounding the third proximal interphalangeal joint, possibly dystrophic in nature. There are no distinct osseous erosions or periosteal reaction No right hand fracture or dislocation is identified. Left hand MACRO: None [email or web address] XR Hand - left 3 ViewsOrdere d By: Pavel Carlos on 10-26-2023 [email or web address] Work Phone: XR Hand - left 3 Viewson Radiology Study observation (narrative) [facility] Glucometer (BldC) [M ass/Vol]on 04-02-2022 Glucose [Mass/Vol] 91 mg/dL 74-106 [facility] Work Phone: Comment on above: MANAGEMENT OF PATIEN T CARE PER NURSING PROTOCOL Absolute lymphocyte counton 03-28-2022 Lymphocytes Auto (Unsp spec) [#/Vol] 2.50 10*3/uL 0.83-4.51 [facility] Work Phone: Basophil percentageon 2021 Basophils/100 WBC (Bld) 1.0 % 0-1 [facility] Work Phone: Chloride [Moles/Vol] 111 mmol/L 98-107 [facility] Work Phone: Eosinophils/100 WBC (Bld) 3.2 % 0-5 [facility] Work Phone: Glucose [Mass/Vol] 98 mg/dL 74-106 [facility] Work Phone: Neutrophils (Bld) [#/Vol] 3.2 10*3/uL 2.0-7.7 [facility] Work Phone: Neutrophils/100 WBC (Bld) 45.7 % 47-70 [facility] Work Phone: Potassium [Moles/Vol] 4.2 mmol/L 3.5-5.1 [facility] Work Phone: Sodium [Moles/Vol] 143 mmol/L 136-145 [facility] Work Phone: WBC (Bld) [#/Vol] 7.0 10*3/uL 4.4-11.0 [facility] Work Phone: Blood erythrocytes count (nu mber/volume)on 03-28-2022 RBC (Bld) [#/Vol] 4.73 10*6/uL 4.6-6.2 [facility] Work Phone: Blood hemoglobin measurement (mass/volume)on 03-28-2022 Hemoglobin (Bld) [Mass/Vol] 15.1 g/dL 13.0-16.5 [facility] Work Phone: Blood lymphocytes/100 leukoc yteson 03-28-2022 Lymphocytes/100 WBC (Bld) 36.0 % 19-41 [facility] Work Phone: Blood monocytes/100 leukocyt eson 03-28-2022 Monocytes/100 WBC (Bld) 13.7 % 0-10 [facility] Work Phone: Blood platelet mean volumeon 03-28-2022 Platelet mean volume (Bld) [Entitic vol] 8.8 fL 6.2-12.0 [facility] Work Phone: Determination of erythrocyte mean corpuscular volume (MCV)on 03-28-2022 MCV (RBC) [Entitic vol] 94.9 fL 80-94 [facility] Work Phone: Hematocrit Auto (Bld) [Volum e fraction]on 03-28-2022 Hematocrit (Bld) [Volume fraction] 44.9 % 40-54 [facility] Work Phone: Laboratory - Chemistry and C hemistry - challengeon 03-28-2022 CO2 [Moles/Vol] 27.0 mmol/L 21.0-32.0 [facility] Work Phone: Magnesium [Mass/Vol] 2.4 mg/dL 1.6-2.6 [facility] Work Phone: Urea nitrogen/Creatinine [Mass ratio] 15.0 mg/mg 10- [facility] Work Phone: Laboratory - Hematology and Cell countson 03-28-2022 Erythrocyte distribution width (RBC) [Entitic vol] 43.3 fL 35.1-43.9 [facility] Work Phone: Erythrocyte distribution width (RBC) [Ratio] 12.4 % 11.6-14.6 [facility] Work Phone: [phone] Immature granulocytes/100 WBC (Bld) 0.400 % 0.0-0.9 [facility] Work Phone: [phone] Comment on above: IG% - Immature Granu locytes (promyelocytes, myelocytes and metamyelocytes) > 1% indicates that a LEFT SHIFT is Present. MCH (RBC) [Entitic mass] 31.9 pg 27.0-32.0 [facility] Work Phone: Nucleated RBC/100 WBC (Bld) [Ratio] 0 % 0-5 [facility] Work Phone: [phone] MCHC Auto (RBC) [Mass/Vol]on 03-28-2022 MCHC (RBC) [Mass/Vol] 33.6 g/dL 32-36 [facility] Work Phone: No Panel Informationon 03-28 Estimated GFR (MDRD) Amer 60 mL/min >60 [facility] Work Phone: Comment on above: GFR Calc Estimated GFR (MDRD) Non-Af Amer 49 mL/min >60 [facility] Work Phone: Comment on above: Non- GFR Calc Platelets bldon 03-28-2022 Platelets (Bld) [#/Vol] 214 10*3/uL 150-450 [facility] Work Phone: [phone] Serum or plasma albumin ashley urement (mass/volume)on 03-28-2022 Albumin [Mass/Vol] 3.3 g/dL 3.2-5.0 [facility] Work Phone: [phone] Serum or plasma calcium ashley urement (mass/volume)on 03-28-2022 Calcium [Mass/Vol] 8.9 mg/dL 8.5-10.1 [facility] Work Phone: [phone] Serum or plasma creatinine m easurement (mass/volume)on 03-28-2022 Creatinine [Mass/Vol] 1.47 mg/dL 0.70-1.30 [facility] Work Phone: Comment on above: The validity of the calculated GFR & GFRAA in patients over 70 years has not been determined. Clinical correlation is essential. Serum or plasma urea nitroge n measurement (mass/volume)on 03-28-2022 Urea nitrogen [Mass/Vol] 22 mg/dL 7-18 [facility] Work Phone: Thin prep Papanicolaou smear with manual screeningon 03-28-2022 Thin prep Papanicolaou smear with manual screening 5 5-15 [facility] Work Phone: Whole blood hemoglobin A1c/t otal hemoglobin ratio (mass fraction)on 03-28-2022 HbA1c (Bld) [Mass fraction] 5.9 % 3.8-5.6 [facility] Work Phone: Comment on above: Normal < 5.7 % Predi abetic 5.7 - 6.4 % Diabetic >or= 6.5 % Please note range changes. Basophil percentageon 2021 Cholesterol [Mass/Vol] 172 mg/dL <200 [facility] Work Phone: Comment on above: <200 mg/dL Desirable 200-240 mg/dL Borderline >240 mg/dL High Risk Testosterone [Mass/Vol] 637 ng/dL [phone] [facility] Work Phone: Comment on above: Adult male reference interval is based on a population ofhealthy nonobese males (BMI <30) between 19 and 39 yearsold. Darrius et.al. JCEM 2017,102;[id number]. PMID:[id number]. Triglyceride [Mass/Vol] 105 mg/dL <199 [facility] Work Phone: Comment on above: The drugs N-Acetylcy steine and Metamizole may falsely depress this assay.Serum Triglycerides Reference Interval Normal <150 mg/dL Borderline high 150 - 199 mg/dL High 200 - 499 mg/dL Very High > or = 500 mg/dL Free testosterone percentage on 03-12-2022 Testosterone Free/Testosterone.t otal [Mass fraction] 1.52 % 1.50-4.20 [facility] Work Phone: Interpretation of Borrelia b urgdorferi antibody assayon 03-12-2022 B. burgdorferi Ab (S) [Interp] REF LAB [facility] Work Phone: [phone] Laboratory - Chemistry and C hemistry - challengeon 03-12-2022 Albumin [Mass/Vol] 3.5 g/dL 2.9-4.4 [facility] Work Phone: [phone] Cobalamin (Vitamin B12) [Mass/Vol] 425 pg/mL 211-911 [facility] Work Phone: No Panel Informationon 03-12 Addendum Document Comment . [facility] Work Phone: Comment on above: The SPE pattern appe ars unremarkable. Evidence ofmonoclonal protein is not apparent. Wpnvf-8-Lzhkksehl 0.2 g/dL 0.0-0.4 [facility] Work Phone: [phone] Xhqls-0-Egfjokkyi 0.7 g/dL 0.4-1.0 [facility] Work Phone: [phone] Gamma Globulins 0.8 g/dL 0.4-1.8 [facility] Work Phone: [phone] Hepatitis C Antibody Non-Reactive Nonreactive [facility] Work Phone: Comment on above: Non Reactive: < 0.8 Equivocal: >/= 0.8 to < 1.0 Reactive: >/= 1.0The CDC recommends that a reactive/equivocal HCV antibody result be followed up by the HCV Nucleic Acid Amplificationtest ([id number]) Prostate Specific Antigen Total 5.14 ng/mL 0.0-4.0 [facility] Work Phone: Comment on above: This test was perfor med using the TPSA assay method for the[employer] chemistry system. Values obtained with differentassay methods cannot be used interchangably.When changing PSA assays in the course of monitoring apatient, additional sequential testing should be carriedout to confirm baseline values. Thyroid Stimulating Hormone (TSH) 1.52 uIU/mL 0.358-3.74 [facility] Work Phone: Protein Fractions Elph [Inte rp]on 03-12-2022 Protein Fractions [Interp] Comment . [facility] Work Phone: Comment on above: Protein electrophore sis scan will follow via computer,mail, or wireless cellular technician delivery. Serum albumin to globulin ra kiera by protein electrophoresison 03-12-2022 Albumin/Globulin Elph [Mass ratio] 1.3 0.7-1.7 [facility] Work Phone: Serum globulin measurement ( mass/volume)on 03-12-2022 Globulin (S) [Mass/Vol] 2.7 g/dL 2.2-3.9 [facility] Work Phone: Serum or plasma C reactive p rotein measurement (mass/volume)on 03-12-2022 CRP [Mass/Vol] mg/L 0.0-3.0 [facility] Work Phone: Comment on above: C-Reactive Protein ( CRP) provides useful information for thediagnosis, therapy and monitoring of inflammatory processesand associated diseases. For the evaluation of Relative Riskfor Cardiovascular Disease, a High Sensitivity CRP (HSCRP)should be ordered. Serum or plasma beta globuli n measurement by electrophoresis (mass/volume)on 03-12-2022 Beta globulin Elph [Mass/Vol] 1.0 g/dL 0.7-1.3 [facility] Work Phone: Serum or plasma cholesterol in HDL measurement (mass/volume)on 03-12-2022 Cholesterol in HDL [Mass/Vol] 50 mg/dL >40 [facility] Work Phone: Comment on above: The drugs N-Acetylcy steine and Metamizole may falsely depress this assay. Reference Range HDL <40 mg/dL Low HDL Cholesterol HDL >or= 60 mg/dL High HDL Cholesterol Serum or plasma cholesterol in VLDL measurement (mass/volume)on 03-12-2022 Cholesterol in VLDL [Mass/Vol] 21 mg/dL 5-40 [facility] Work Phone: Serum or plasma folate measu rement (mass/volume)on 03-12-2022 Folate [Mass/Vol] 15.80 ng/mL 3.1-55.4 [facility] Work Phone: Serum or plasma low density lipoprotein (LDL) cholesterol measurement (mass/volume)on 03-12-2022 Cholesterol in LDL [Mass/Vol] 101 mg/dL 0-130 [facility] Work Phone: Serum or plasma testosterone free measurement (mass/volume)on 03-12-2022 Testosterone Free [Mass/Vol] 9.68 ng/dL 5.00-21.00 [facility] Work Phone: Thin prep Papanicolaou smear with manual screeningon 03-12-2022 Thin prep Papanicolaou smear with manual screening See comment [facility] Work Phone: Comment on above: Result: Not Observed Thin prep Papanicolaou smear with manual screening Negative Negative [facility] Work Phone: Comment on above: Lyme antibodies not detected. Reflex testing is notindicated.No laboratory evidence of infection with B. burgdorferi(Lyme disease). Negative results may occur in patientsrecently infected (less than or equal to 14 days) with B.burgdorferi. If recent infection is suspected, repeattesting on a new sample collected in 7 to 14 days isrecommended.Performed at: [facility] [id number] Director: Herbert Osman PhD, Phone: [phone] at: [facility] [id number] Director: Sonya Okeefe MD, Phone: [phone] Total protein bloodon 2021 Protein [Mass/Vol] 6.2 g/dL 6.0-8.5 [facility] Work Phone: XR SHOULDER LEFT MIN 2 VIEWS on 11-06-2017 INR Coag RelTime (Bld) EXAM: XR SHOULDER LEFT 4 VIEWS,, 11/06/2017 13:40 PMCLINICAL INDICATIONS: Left Shoulder painRELEVANT CLINICAL HISTORY: M25.512:Pain in left shoulder Scap Y, [facility], AP IR, Axillary;COMPARISON: 5/26/2017FINDINGS:4 images obtained.Soft Tissue: Improved soft tissue changes without significant soft tissueswelling. Surgical drain has been removed.Bone: No acute osseous abnormality is identified. Joint: Previous reverse total left shoulder arthroplasty. Prosthesis isstable and intact. Acromioclavicular and glenohumeral joints are aligned.Degenerative changes at acromioclavicular joint.IMPRESSION: Previous reverse total left shoulder arthroplasty without hardware failure oracute osseous abnormality. Normal [facility] No Panel Information Nasal Screen MRSA/MSSA [facility] Work Phone: Vital Signs Date Time Vital Sign Value Performing Clinician Faci littommie 01-07-2025 13:53-0400 Body height 177.[address] Kimberly Whitt MD Work Phone: [facility] 01-07-2025 13:53-0400 Body mass index (BMI) [Ratio] 27.7 kg/m2 Dr. Kimberly Whitt MD Work Phone: [facility] 01-07-2025 13:53-0400 Body weight 87.[address] Kimberly Whitt MD Work Phone: [facility] 04-02-2022 16:17-0400 Body temperature 97 [degF] Dr. Kimberly Whitt Work Phone: [facility] Work Phone: 04-02-2022 16:17-0400 Diastolic blood pressure 74 mm[Hg] Dr. Kimberly Whitt Work Phone: [facility] Work Phone: 04-02-2022 16:17-0400 Heart rate 56 /min Dr. Kimberly Whitt Work Phone: [facility] Work Phone: 04-02-2022 16:17-0400 Respiratory rate 16 /min Dr. Kimberly Whitt Work Phone: [facility] Work Phone: 04-02-2022 16:17-0400 SaO2% (BldA) [Mass fraction] 99 % Dr. Kimberly Whitt Work Phone: [facility] Work Phone: 04-02-2022 16:17-0400 Systolic blood pressure 148 mm[Hg] Dr. Kimberly Whitt Work Phone: [facility] Work Phone: 04-02-2022 11:30-0400 Inhaled oxygen flow rate 4 L/min Dr. Kimberly Whitt Work Phone: [facility] Work Phone: 04-02-2022 06:23-0400 Body height 177.[address] Kimberly Whitt Work Phone: [facility] Work Phone: 04-02-2022 06:23-0400 Body mass index (BMI) [Ratio] 27.1 kg/m2 Dr. Kimberly Whitt Work Phone: [facility] Work Phone: 04-02-2022 06:23-0400 Body weight [address] Kimberly Whitt Work Phone: [facility] Work Phone: 01-17-2022 13:15-0400 Body mass index (BMI) [Ratio] 26.7 kg/m2 Dr. Kimberly Whitt Work Phone: [facility] Work Phone: 01-17-2022 13:15-0400 Body weight 87.[address] Kimberly Whitt Work Phone: [facility] Work Phone: 01-17-2022 13:15-0400 Diastolic blood pressure 60 mm[Hg] Dr. Kimberly Whitt Work Phone: [facility] Work Phone: 01-17-2022 13:15-0400 Respiratory rate 18 /min Dr. Kimberly Whitt Work Phone: [facility] Work Phone: 01-17-2022 13:15-0400 Systolic blood pressure 100 mm[Hg] Dr. Kimberly Whitt Work Phone: [facility] Work Phone: Encounters Encounter Date Encounter Type Care Provider Facility Start: 02-16-2025 End: 02-16-[address] Kimberly Whitt MD Work Phone: -Physical Therapy Start: 02-16-2025 End: 02-16-2025 Discharged Recurring Dipti PEREZ -Physical Therapy Work Phone: Start: 01-07-2025 End: 01-07-[address] Zacarias Nichols MD -[facility] Start: 01-07-2025 End: 01-07-[address] Kimberly Whitt MD Work Phone: -[facility] Start: 08-04-2024 End: 08-04-2024 ambulatory Kimberly Whitt Facility:[facility] [facility] Start: 03-13-2024 End: 03-13-2024 ambulatory Kimberly Whitt Facility:[facility] Start: 10-25-2023 End: 10-26-2023 Transcribe Orders Rush Craven Work Phone: [facility] Comment on above: Arthritis Start: 04-02-2022 End: 04-02-2022 Admission to same day surgery center Dr. Kimberly Whitt Work Phone: [facility] Start: 04-02-2022 End: 04-02-[address] Kimberly Whitt Work Phone: [facility] Work Phone: Start: 03-16-2022 End: 03-16-[address] Kimberly Whitt Work Phone: [facility] Scan, [facility] Start: 03-12-2022 End: 03-12-[address] Kimberly Whitt Work Phone: [facility] Start: 01-17-2022 End: 01-17-[address] Kimberly Whitt Work Phone: [facility] Start: 11-06-2017 Ambulatory MARNI GARDNER [facility] Start: 05-30-2013 End: 05-30-2013 Telephone encounter Fidelia (Janett Soriano Work Phone: General Surgery Procedures Date Procedure Procedure Detail Performing Clinician Start: 01-07-2025 X-ray of cervical spine Dr. Kimberly Whitt MD Work Phone: Start: 10-25-2023 Radex hand minimum 3 views Rush Boggs Kanika Work Phone: Start: 04-02-2022 Radiologic examinati on of knee Dr. Kimberly Whitt Work Phone: Start: 04-02-2022 Total Knee Replaceme nt Robotic Arm Nick (Right) Dr. Kimberly Whitt Work Phone: Start: 03-16-2022 MRI of lower extremity Dr. Kimberly Whitt Work Phone: Start: 06-10-2007 Colonoscopy Fidelia Soriano Work Phone: Nasal Screen MRSA/MSSA Dr. Polo Whitt Work Phone: Plan of Treatment Date Care Activity Detail Author Start: 01-07-2025 X-ray of cervical spine Cerv S pine 2 or 3 Views [facility] Start: 01-07-2025 XR Cervical spine 2 or 3 Views [facility] Start: 12-21-2024 Tetanus vaccination Tetanus (T d or Tdap) Booster [facility] Start: 10-25-2023 End: 10-24-2024 XR Hand - left 3 Views [facility] Work Phone: Comment on above: Expected: 10/25/2023 , Expires: 10/24/2024 Start: 02-08-2023 COVID-19 Vaccine () COVID-19 Vaccine () [facility] Start: 04-02-2022 Application of ice collar, cap or bag [facility] Work Phone: Start: 04-02-2022 Exercises [facility] Work Phone: Start: 04-02-2022 Incentive spirometry [facility] Work Phone: Start: 04-02-2022 Neurovascular assessment [facility] Work Phone: Start: 04-02-2022 [facility] Work [facility]: Start: 04-02-2022 Patient education [facility] Work Phone: Start: 04-02-2022 Provision of activit y privileges [facility] Work Phone: Start: 04-02-2022 Referral to service [facility] Work Phone: Start: 04-02-2022 Vital signs measurements [facility] Work Phone: Start: 04-02-2022 Wound care [facility] Work Phone: Start: 04-02-2022 [facility] Work Phone: Start: 02-08-2021 Influenza vaccination INFLUENZ A (Season Ended) [facility] Start: 06-10-2017 Screening for malign ant neoplasm of colon [facility] Start: 06-01-2016 DIABETES SCREEN DIABETES SCREEN [facility] Start: 04-04-2016 Pneumococcal vaccination Pneum ococcal Vaccine(s) (65+ yrs) (2 of 2 - PPSV23 or PCV20) [facility] Start: 2010 ADVANCE DIRECTIVE DISCUSSION ADVANCE DIRECTIVE DISCUSSION [facility] Start: 2010 Pneumococcal vaccination Pneum ococcal Vaccine(s) (65+ yrs) (1 of 1 - PCV) [facility] Start: 2005 Hepatitis B (HBV) Vaccine (optional start 60+ years) Hepatitis B (HBV) Vaccine (optional start 60+ years) [facility] Start: 2005 RSV vaccine (optiona l 60+ years) RSV vaccine (optional 60+ years) [facility] Start: 1995 Screening for malign ant neoplasm of colon [facility] Start: 1995 Shingles (RZV) Vacci ne (1 of 2) Shingles (RZV) Vaccine (1 of 2) [facility] Start: 1995 SHINGRIX VACCINE (1 of 2) SHINGRIX VACCINE (1 of 2) [facility] Start: 01-20-1980 LIPID SCREEN LIPID SCREEN [facility] Start: 01-20-1964 Hepatitis A (HAV) Vaccine (optional start 19+ years) Hepatitis A (HAV) Vaccine (optional start 19+ years) [facility] Start: 01-20-1964 Tetanus vaccination Tetanus (T d or Tdap) Booster [facility] Start: 01-20-1964 Urine microalbumin profile DTAP,TDAP,TD (1 - Tdap) [facility] Start: 1963 HEPATITIS C SCREENING HEPATITIS C SC REENING [facility] Start: 1963 Hepatitis C screening Hepatitis C An tibody [facility] Start: 1963 Tetanus + diphtheria + acellular pertussis vaccine (product) Tdap Booster [facility] Start: 1957 Adult depression screening assessment DEPRESSION SCREENING [facility] Patient referral [facility] Work Phone: Immunizations Immunization Date Immunization Notes Care Provider [facility] 05-08-2021 influenza, injectabl e, quadrivalent, preservative free [facility] 2 [facility] 03-03-2020 Influenza, seasonal vaccine, quadrivalent, adjuvanted, 0.5mL dose, preservative free (YSR=144) [facility] 2 [facility] 04-28-2019 influenza, injectabl e, quadrivalent, contains preservative Phe 2 [facility] 04-09-2018 influenza, high dose seasonal, preservative-free Phe 2 [facility] 03-16-2017 influenza, high dose seasonal, preservative-free Phe 2 [facility] 03-14-2016 influenza, injectabl e, quadrivalent, preservative free Dr. Kimberly Whitt MD Work Phone: [facility] 03-14-2016 influenza, seasonal, injectable Dr. Kimberly Whitt Work Phone: [facility] Work Phone: 03-14-2016 influenza, seasonal, injectable, preservative free Phe 2 [facility] 04-04-2015 influenza, seasonal, injectable Phe 2 [facility] 04-04-2015 pneumococcal conjuga te vaccine, 13 valent Phe 2 [facility] 12-21-2014 TD(adult) unspecifie d formulation Phe 2 [facility] 12-21-2014 tetanus and diphther ia toxoids, adsorbed, preservative free, for adult use (2 Lf of tetanus toxoid and 2 Lf of diphtheria toxoid) Dr. Kimberly Whitt Work Phone: [facility] 03-24-[address] Kimberly Whitt Work Phone: [facility] 03-24-2013 influenza virus vacc ine, unspecified formulation Fidelia Soriano Work Phone: [facility] 03-24-2010 pneumococcal polysaccharide vaccine, 23 valent Fidelia Soriano Work Phone: [facility] Payers Date Payer Category Payer Self-pay [id number] 2013 Medicare [id number] 2011 Medicare [employer] MEDICARE ZDECLANJOSEPHINEA CHOICE PPO [id number] 2011-2019 PPO [id number] Unknown [id number] Unknown [id number] Unknown [id number] Unknown [id number] Unknown [id number] Social History Date Type Detail Facility Start: 05-21-2013 End: 07-02-2023 Tobacco smoking status NHIS Never smoker [facility] Start: 05-21-2013 Tobacco use and exposure Never used [facility] Start: 05-21-2013 Alcohol intake [facility] Start: 05-21-2013 Alcohol intake [facility] Start: 10-06-2012 Alcohol Comment occasional [facility] Start: 1945 Sex Assigned At Not on file [facility] Start: 03-19-2022 Tobacco smoking status NHIS Unknown if ever smoked [facility] Work Phone: Start: 11-02-2020 Occasional [facility] Start: 11-02-2020 None [facility] Start: 12-21-2014 Spouse/ Signif icant Other [facility] Start: 11-02-2020 Non-smoker [facility] Start: 1945 Sex Assigned At Male W [facility] Gender identity Not on file [facility] Medical Equipment Procedure Code Equipment Code Equipment Origin al Text Equipment Identifier Dates ([id number]) Metal-backed pat romeo prosthesis ()[id number] FDA Start: 04-02-2022 ([id number]) Coated knee femu r prosthesis ()[id number] FDA Start: 04-02-2022 ([id number]) Coated knee tibi a prosthesis ()[id number] FDA Start: 04-02-2022 ([id number]) Tibial insert ()[id number] FDA Start: 04-02-2022 Goals Date Patient Goal Desired Activity /State Functional Status Date Assessment Result Facility 04-02-2022 Functional status Ambulates [facility] Work Phone: Mental Status Date Assessment Result Facility 04-02-2022 Cognitive function Voice/Name [facility] Work Phone: Clinical Notes 05-30-2013 to 02-16-2025 Note Date & Type Note Facility 02-16-2025 Discharge summary Note Date/Time February 16, 2025 7:00pm [facility] Physical Therapy [facility] [address] [place] [address] / REHABILITATION SERVICES DISCHARGE SUMMARY MR#: [id number] Acct: [id number] Name: MITCH WHITT Rep #: [id number] : 1945 80 From: Makenzie Fabian. T, OCS Referring Dr.: ANA Machuca Status: REG RCR Insurance: [employer] MEDICARE PPO SELF PAY INSURANCE Discharge Summary D/C summary: It has been my pleasure to treat MITCH WHITT referred by ANA Machuca, with the diagnosis of CERVICALGIA ,KYPHOSIS ,CERVICAL SPINE for a total of 8visit(s). Discharge Date: 02/16/25 Please see the following information for a summary of their discharge status. Subjective Subjective: Patient making progressing with less pain Lifting [place] Turning makes symptoms worse Possible management Pain Bilateral Neck: Pain Intensity (Out of 10): 2 Overall Improvement % Improvement: 60 Objective Objective/Function: POSTURE: mild forward posture ,thoracic kyphosis ,head forward GAIT: reciprocal pattern slow corinne PALPATION: UT/levator ,paraspinals BUE: WFL CERVICAL ROM: flexion min loss ,lateral flexion mod/severe loss ,rotation mod loss ,extension mod/severe loss with crepitus noted with motion MMT: BUE 4/5 grossly Goals Goal 1:: Patient to be I with HEP for neck Goal Progress: Progressing Goal 2:: Patient to improve cervical ROM for function of recovery for driving Goal Progress: Progressing Goal 3:: Patient to demonstrate 50% improvement with less pain and improved function Goal Progress: Goal Met Goal 4:: Patient to improve neck oswestry score by 5 points to improve function and QOL Goal Progress: Progressing Goal 5:: Patient able to stand and/or walk 40-50% improved for ADLS Goal Progress: Progressing Plan Plan: D/C D/C Information Discharge Comments: hep and possible pain management d/c sentence: If there are questions or concerns regarding this patient's physical therapy, please feel free to call me at [phone]. Thank you for the referral of thispatient. Sincerely, Josiah Hernandez, PT, Cert MDT, OCS Balance/Gait/Functional tests Balance/Special Test Scores Oswestry Neck Score: 19 Improvement % Improvement: 60 <Electronically signed by Cert. ZARI Montes PT, OCS> 02/17/25 1103 CC: ANA Machuca; Dr. Kimberly Whitt MD ~ JLA Signed [facility] Work Phone: [phone]) 249-441009-09-2025 Discharge summary [facility] Physical Therapy [facility] [address] [place] [address] / REHABILITATION SERVICES DISCHARGE SUMMARY MR#: [id number] Acct: [id number] Name: MITCH WHITT Rep #: [id number] : 1945 80 From: Cert. ZARI Fabian, OCS Referring Dr.: ANA Machuca Status: REG RCR Insurance: [employer] MEDICARE PPO SELF PAY INSURANCE Discharge Summary D/C summary: It has been my pleasure to treat MITCH WHITT referred by ANA Machuca, with the diagnosis of CERVICALGIA ,KYPHOSIS ,CERVICAL SPINE for a total of 8visit(s). Discharge Date: 02/16/25 Please see the following information for a summary of their discharge status. Subjective Subjective: Patient making progressing with less pain Lifting [place] Turning makes symptoms worse Possible management Pain Bilateral Neck: Pain Intensity (Out of 10): 2 Overall Improvement % Improvement: 60 Objective Objective/Function: POSTURE: mild forward posture ,thoracic kyphosis ,head forward GAIT: reciprocal pattern slow corinne PALPATION: UT/levator ,paraspinals BUE: WFL CERVICAL ROM: flexion min loss ,lateral flexion mod/severe loss ,rotation mod loss ,extension mod/severe loss with crepitus noted with motion MMT: BUE 4/5 grossly Goals Goal 1:: Patient to be I with HEP for neck Goal Progress: Progressing Goal 2:: Patient to improve cervical ROM for function of recovery for driving Goal Progress: Progressing Goal 3:: Patient to demonstrate 50% improvement with less pain and improved function Goal Progress: Goal Met Goal 4:: Patient to improve neck oswestry score by 5 points to improve function and QOL Goal Progress: Progressing Goal 5:: Patient able to stand and/or walk 40-50% improved for ADLS Goal Progress: Progressing Plan Plan: D/C D/C Information Discharge Comments: hep and possible pain management d/c sentence: If there are questions or concerns regarding this patient's physical therapy, please feel free to call me at [phone]. Thank you for the referral of thispatient. Sincerely, Josiah Hernandez, PT, Cert MDT, OCS Balance/Gait/Functional tests Balance/Special Test Scores Oswestry Neck Score: 19 Improvement % Improvement: 60 02/17/25 1103 CC: ANA Machuca; Dr. Kimberly Whitt MD ~ LAYLA Signed [facility]07-31-2025 Evaluation note* Diagnosis Onset Date Resolution Status Admit Date Cervical kyphosis noneactive January 072024 1:45pm Neck pain noneactive January 07 1:45pm [facility] Work Phone: [phone] Miscellaneous Notes* Telephone Encounter - Fidelia Soriano) - 05/30/2013 7:37 PM EST Mitch Whitt [id number] May 30, 2013 Called by patient regarding drainage from wound. Denies fevers/chills/chest pain/sob/nausea/vomiting. States fluid is clear, but has been seeping. Patient lives in [place], directed him to the local ED to assure there was not an abscess or infection. Fidelia Soriano MD May 30, 2013 documented in [facility] encounter[facility]* Diagnosis Onset Date Resolution Status Paroxysmal atrial fibrillation chronic [facility] Work Phone: Evaluation note* Diagnosis Arthritis- Primary Arthropathy, unspecified, site unspecified [facility] Arthritis Arthropathy, unspecified, site unspecified [facility]No assessment information availableTem[facility] Work Phone: Hospital Discharge instructions Additional Instructions Implant Used?: Yes [facility] Work Phone: Hospital Discharge instructionsAmbulatory Orders* Physical Therapy Referral Location: None Selected [facility] Work Phone: Reason for referral (narrative)No reason for referral information availableTemecula Valley Hospital Work Phone: Summary Purpose Family History No Family History Records Found Relationship Condition Age at Onset Recorded Date/T sofie mother Cerebrovascular accident (CVA) Unknown Hypertension Unknown father Cerebrovascular accident (CVA) Unknown Diabetes mellitus Unknown Advance Directives No Advanced Directives Records Found Advance Directive Response Recorded Date/ Time Name of Medical Power of Extrusion Technician March 19, 2022 9:16am Advance Directives Yes March 13, 2016 2:58pm Living Will Yes March 19 9:16am Power of Extrusion Technician Yes March 19, 2022 9:16am Advance Directive Response Recorded Date/ Time Advance Directives Yes March 13, 2016 2:58pm Chief Complaint and Reason for Visit Chief Complaint 6 M FU RIGHT KNEE SLADE PROTOCAL rt total knee w slade Reason for Visit Paroxysmal atrial fi brillation Chief Complaint Admit Date CERVICAL SPINE January 07, 2025 1:45 pm Room 5 January 07, 2025 2:12 pm Chief Complaint Admit Date CERVICAL SPINE January 07, 2025 1:45 pm Room 5 January 07, 2025 2:12 pm NECK PAIN. RX HERE February 16, 2025 10:00am Reason for Visit Admit Date Cervical kyphosis January 07, 2025 1:45 pm Neck pain January 07, 2025 1:45 pm Reason for Referral Specialty Diagnoses / Procedures Referred By Mendoza t Referred To Contact Radiology Diagnoses Arthritis Procedures XR HAND LEFT 3 VIEWS [facility]ven [address] [place] [address] [facility]IOLOGY [address] [place] [address] [place] [address] Referral ID Status Reason Start Date Expiration Date Visits Re quested Visits Authorized [id number] Closed 10/25/2023 10/24/2024 1 1 Additional Source Comments (unrecognized sect ion and content) No Status Records FoundNo Status Records FoundNo Status Records Found INFORMATION SOURCE (unrecogn ized section and content) DATE CREATED AUTHOR 11/27/2017 [facility] DATE CREATED AUTHOR AUTHOR'S ORGANIZ ATION 10/28/2023 [facility] DATE CREATED AUTHOR AUTHOR'S ORGANIZ ATION 02/25/2025 [facility] Source Comments (unrecognize d section and content) In the event this informatio n is protected by the Federal Confidentiality of Alcohol and Drug Abuse Patient Records regulations: The Federal rules restrict any use of the information to criminally investigate or prosecute any alcohol or drug abuse patient.[facility] Reason for Visit (unrecogniz ed section and content) Specialty Diagnoses / Procedures Referred By Contac t Referred To Contact Radiology Diagnoses Arthritis Procedures XR HAND LEFT 3 VIEWS Rush Craven [address] [place] [address] [facility] DI[facility]NOST[facility]IOLOGY [address] [place] [address] [place] [address] Referral ID Status Reason Start Date Expiration Date Visits Re quested Visits Authorized [id number] Closed 10/25/2023 10/24/2024 1 1 Care Teams (unrecognized sec tion and content) Team Status: Active Member Role/Relationship Status Dates Dr. Kimberly Whitt MD Family Provider Active Dr. Kimberly Whitt MD Primary Care Provider Active Team Status: Active Member Role/Relationship Status Dates Dr. Kimberly Whitt MD Primary Care Provider Active Start: January 07, 2025 Dr. Kimberly Whitt MD Referring Provider Active St art: January 07, 2025 ANA Machuca Attending Provider Active Star t: January 07, 2025 Team Status: Inactive Member Role/Relationship Status Dates Dr. Kimberly Whitt MD Primary Care Provider Active Start: January 07, 2025 End: January 07, 2025 Dr. Zacarias Nichols MD Attending Provider Active S tart: January 07, 2025 End: January 07, 2025 Team Status: Inactive Member Role/Relationship Status Dates Dr. Kimberly Whitt MD Primary Care Provider Active Start: January 07, 2025 End: January 07, 2025 Dr. Kimberly Whitt MD Referring Provider Active St art: January 07, 2025 End: January 07, 2025 ANA Machuca Attending Provider Active Star t: January 07, 2025 End: January 07, 2025 Team Status: Active Member Role/Relationship Status Dates Dr. Kimberly Whitt MD Primary care physician Active Team Status: Inactive Member Role/Relationship Status Dates Dr. Kimberly Whitt MD Primary care physician Active Start: January 07, 2025 End: January 07, 2025 Dr. Kimberly Whitt MD Referring Provider Active St art: January 07, 2025 End: January 07, 2025 ANA Machuca Attending physician Active Sta rt: January 07, 2025 End: January 07, 2025 Team Status: Inactive Member Role/Relationship Status Dates Dr. Kimberly Whitt MD Primary care physician Active Start: January 07, 2025 End: January 07, 2025 Dr. Zacarias Nichols MD Attending physician Active Start: January 07, 2025 End: January 07, 2025 Team Status: Inactive Member Role/Relationship Status Dates Dr. Kimberly Whitt MD Primary care physician Active Start: February 16, 2025 End: February 16, 2025 ANA Machuca Attending physician Active Sta rt: February 16, 2025 End: February 16, 2025 ANA Machuca Referring Provider Active Star t: February 16, 2025 End: February 16, 2025 Goals (unrecognized section and content) Goals may be documented in a n alternate sectionGoals may be documented in an alternate sectionGoals may be documented in an alternate section FOR RECORDS PERTAINING TO PATIENTS WHO ARE OR HAVE BEEN ENROLLED IN A CHEMICAL DEPENDENCY/SUBSTANCEABUSE PROGRAM, SOME INFORMATION MAY BE OMITTED. This clinical summary was aggregated from multiple sources. Caution should be exercised in using it in the provision of clinical care. This summary normalizes information from multiple sources, and as a consequence, information in this document may materially change the coding, format and clinical context of patient data. In addition, data may be omitted in some cases. CLINICAL DECISIONS SHOULD BE BASED ON THE PRIMARY CLINICAL RECORDS. [facility]. provides no warranty or guarantee of the accuracy or completeness of information in this document.
[2025-05-08 08:08] LABS: Lyme Scn Total Ab w/Rflx Negative (Negative)
== END 2025-05-06 16:10 | disposition home or self-care (01) ==
PROVIDERS: Emergency Provider Emergency Medicine; PCP Family Medicine; Visit Provider Emergency Medicine
DX: S30.861A Insect bite (nonvenomous) of abdominal wall, initial encounter (principal); I48.0 Paroxysmal atrial fibrillation; W57.XXXA Bitten or stung by nonvenomous insect and other nonvenomous arthropods, initial encounter; R21 Rash and other nonspecific skin eruption; Z79.01 Long term (current) use of anticoagulants
CPT/HCPCS: 86618; 99282